=== PATIENT | male | born 1945 | race Caucasian/White ===

== ENCOUNTER 2022-07-01 14:53 | Emergency (ER) | payer MEDICARE, MEDICAID, SELFPAY ==
[2022-07-01] VITALS (7 sets, daily range): BP systolic 126–155; BP diastolic 57–77; PULSE 60–88; RESP 16–18; TEMP 36.6; O2SAT 94–98; BMI 25.8
[2022-07-01 15:08] LABS: POC Glucose,Bedside 105 (70-110)
--- NOTE | 2022-07-01 15:25 | PC.NURSE ---
KEYONNA CANO at
--- NOTE | 2022-07-01 15:27 | HMH.EDGENADL ---
Discharge Plan Disposition Patient Disposition: Home, Self-Care Prescriptions Prescriptions: New meclizine 25 mg tablet 25 mg PO TID PRN (Reason: dizziness) Qty: 30 0RF Referrals Follow up/Referrals: Lacy Ramires APRN [Primary Care Provider] - See instructions Clinical Impressions Clinical Impression: Vertigo Instructions Patient Instructions: DI for Vertigo Discharge ED Provider: Zackary Kay General Adult HPI General Chief complaint: Hyper/Hypoglycemia Stated complaint: diabetic,tired,dizzy Time Seen by Provider: 07/01/22 15:10 Mode of Arrival: Ambulatory Source of Information: Patient Limitations: No Limitations Description of Symptoms (Recalled from ER Triage Doc. by RN): Presents via POV d/t concerns with fluctuating blood sugar x 1 week. Hx of DM II. Recent seperation with significant other of 22 years. Since, poor intake. Pt reports FS in the middle of the night of 30. Pt called PCP who instructed to stop Metformin 500mg q daily on Saturday. Triage FS 105. History of Present Illness HPI narrative: Patient is a 76-year-old male with past medical history of diabetes who was recently taken off his metformin who presents with concern for fluctuating blood sugar and vertigo. He says that he recently had a separation from his significant other of 22 years and has not been eating well during this time. He says that he checked his blood sugar the other night and it was 30. He said that he was feeling little dizzy today so he wanted to come in for evaluation. Denies any nausea or diaphoresis. Denies any chest or abdominal pain. Denies any vomiting. Denies any diarrhea or constipation. Related Data Previous Rx's Medication Instructions Recorded meclizine 25 mg tablet 25 mg PO TID PRN dizziness #30 tabs 07/01/22 Allergies Allergy/AdvReac Type Severity Reaction Status Date / Time No Known Allergies Allergy Unverified 03/26/17 14:44 [facility] Disclaimer: The information contained in this section may have been updated after the patient was seen, as this information can be updated by other users. Social History Smoking Status: Former smoker alcohol intake: never current occupational status: retired Travel in the last 8 weeks: None ROS Obtained: Yes All systems reviewed & no additional complaints except as documented Physical Exam General General appearance: alert and in no apparent distress Head Head exam: atraumatic, normocephalic and normal inspection Eye Eye exam: Present normal appearance and PERRL ENT ENT exam: Present normal exam, mucous membranes moist and normal external ear exam Neck Neck exam: Present normal inspection and trachea midline Chest Chest inspection: Present normal inspection and symmetric chest wall rise Respiratory Respiratory exam: Present normal lung sounds bilaterally; Absent respiratory distress Cardiovascular Cardiovascular exam: Present regular rate and normal rhythm Abdominal Exam Abdominal exam: Present soft; Absent distention, tenderness or guarding Extremities Exam Extremities exam: Present normal inspection; Absent edema Neurological Exam Neurological exam: Present alert and oriented X3 Psychiatric Psychiatric exam: Present normal affect and normal mood Skin Skin exam: Present warm, dry, intact and normal color Medical Decision Making Medical Records Medical records reviewed: Yes I reviewed the patient's medical records. Octaviano Inquiry Pt receiving controlled substance: No Vital Signs: 07/01/22 15:06 07/01/22 15:02 07/01/22 15:38 Temperature 98 F Temperature Source Oral Pulse Rate 83 70 Pulse Rate [Right] 88 Respiratory Rate 16 18 18 Blood Pressure 155/77 H 126/62 Blood Pressure [Right Arm] 155/77 H Blood Pressure Mean [Right Arm] 103 Blood Pressure Source Blood Pressure Position 02 Sat by Pulse Oximetry 94 L 96 96 Oxygen Delivery Method Room Air Room Air Room Air 07/01/22 15:02 07/01/22 15:
--- NOTE | 2022-07-01 15:48 | PC.NURSE ---
Went in to round on patient; patient baez snot need anything at this time. Call light within reach
== END 2022-07-01 16:56 | disposition home or self-care (01) ==
PROVIDERS: Emergency Provider Student in an Organized Health Care Education/Training Program; PCP Nurse Practitioner Family
DX: R42 Dizziness and giddiness (principal); E11.9 Type 2 diabetes mellitus without complications
CPT/HCPCS: 82962; 96360; 99283; 99284

== ENCOUNTER 2022-08-27 13:41 | Emergency (ER) | payer MEDICARE, MEDICAID, SELFPAY ==
[2022-08-27 13:41] VITALS: BP 194/109; PULSE 99; RESP 17; TEMP 36.8; O2SAT 98; BMI 25.8
[2022-08-27 13:45] VITALS: BP 194/109; PULSE 85; O2SAT 98
--- NOTE | 2022-08-27 13:45 | PC.NURSE ---
DR MARTINEZ AT BEDSIDE
--- NOTE | 2022-08-27 13:46 | ECG_ITS ---
APPROVED REPORT Exam: Resting ECG HR:98 bpm ECG Measurements Heart Rate 98 AXES NM 150 P 46 QRSd 138 QRS -72 QT 362 T 29 QTc 418 Conclusion SINUS RHYTHM WITH OCCASIONAL VENTRICULAR PREMATURE COMPLEXES WITH FREQUENT SUPRAVENTRICULAR PREMATURE COMPLEXES RIGHT BUNDLE BRANCH BLOCK [120+ ms QRS DURATION, UPRIGHT V1, 40+ ms S IN I/aVL/V4/V5/V6] LEFT ANTERIOR FASCICULAR BLOCK [QRS AXIS <= -45, QR IN I, RS IN II] ABNORMAL ECG UNCONFIRMED REPORT Electronically signed by : Lucian Hood MD 08/28/2022 21:22:06
--- NOTE | 2022-08-27 13:49 | XR_ITS ---
FINAL REPORT TECHNIQUE: Single view chest CLINICAL HISTORY: soa FINDINGS: A single view of the chest was obtained. The heart and mediastinum are within normal limits. The lungs are clear. There is no pneumothorax. Osseous structures are unremarkable. IMPRESSION: No acute cardiopulmonary process. Reviewed, Interpreted and Dictated by Dhiraj Heard III, MD Transcribed by Tasia Solis Authenticated and [facility]
--- NOTE | 2022-08-27 13:53 | PC.NURSE ---
XR AT BEDSIDE
[2022-08-27 13:59] VITALS: BP 155/72; PULSE 87; O2SAT 97
[2022-08-27 14:02] LABS: Chloride 102 mmol/L (98-107); Sodium 134 mmol/L (136-145)
[2022-08-27 14:03] LABS: Potassium 4.3 mmoL/L (3.5-5.1)
[2022-08-27 14:05] LABS: Alanine Aminotransferase 31 U/L (12-78); Alkaline Phosphatase 49 U/L (38-126); Anion Gap 9.3 mEq/L (5-15); Aspartate Amino Transferase 34 U/L (17-59); Blood Urea Nitrogen 14 mg/dl (9-20); Carbon Dioxide 27 mmol/L (22.0-30.0); Creatinine Clearance Estimated 68 mL/min (50-200); Estimated Glomerular Filt Rate 109 ml/min (>60); GFR (African American) 132 ML/MIN (>60)
--- NOTE | 2022-08-27 14:05 | HMH.EDGENADL ---
Discharge Plan Disposition Patient Disposition: Home, Self-Care Chief Complaint: Arrhythmia/Palpitations Prescriptions Prescriptions: No Action meclizine 25 mg tablet 25 mg PO TID PRN (Reason: dizziness) Qty: 30 0RF Referrals Follow up/Referrals: Lacy Ramires APRN [Primary Care Provider] - See instructions Activity Restrictions/Add. Instructions Additional Instructions/Restrictions: Follow-up with your primary care physician within the next week. Restart your lisinopril 10 mg that you have at home daily until that time. Return for chest pain difficulty breathing or any other concerns Clinical Impressions Clinical Impression: Hypertensive urgency Discharge ED Provider: Bala Pinedo General Adult HPI General Chief complaint: Arrhythmia/Palpitations Stated complaint: High BP, possible irregular heartbeat Time Seen by Provider: 08/27/22 13:45 Mode of Arrival: Ambulatory Limitations: No Limitations Description of Symptoms (Recalled from ER Triage Doc. by RN): PT C/O HIGH BLOOD PRESSURE AND IRREGULAR HEART RATE THAT STARTED THIS AM. PT STATES HE HAS NOT TAKEN B/P MED OVER 1 YEAR, DID TAKE 10MG OF LISINOPRIL THIS AM History of Present Illness HPI narrative: 76-year-old male presents with high blood pressure and irregular heartbeat that started this morning. He says he has not taken blood pressure medicine in over 1 year he used to take lisinopril 10 mg he took 1 dose this morning. He describes mild lightheadedness. His neighbor is a former nurse and she checked his blood pressure and had elevated blood pressure so she recommended he come into the emergency room. No chest pain difficulty breathing headache change in mental status. Related Data Previous Rx's Medication Instructions Recorded meclizine 25 mg tablet 25 mg PO TID PRN dizziness #30 tabs 07/01/22 Allergies Allergy/AdvReac Type Severity Reaction Status Date / Time No Known Allergies Allergy Unverified 03/26/17 14:44 [facility] Disclaimer: The information contained in this section may have been updated after the patient was seen, as this information can be updated by other users. Social History (Updated 07/01/22 @ 16:52 by Zackary Kay MD) Smoking Status: Former smoker alcohol intake: never current occupational status: retired Travel in the last 8 weeks: None ROS Obtained: Yes All systems reviewed & no additional complaints except as documented Constitutional Constitutional: Denies fatigue and Denies headache(s) Eyes Eyes: Denies dry eyes ENT Ears, Nose, Mouth, and Throat: Denies dizziness and Denies headache(s) Cardiovascular Cardiovascular: Denies diaphoresis and Denies dyspnea Respiratory Respiratory: Denies dyspnea Gastrointestinal Gastrointestingal: Denies coffee ground emesis Genitourinary Male Genitourinary: Denies flank pain Musculoskeletal Musculoskeletal: Denies joint stiffness Integumentary/Breasts Skin/Breast: Denies rash Neurologic Neurologic: Denies dizziness and Denies headache(s) Endocrine Endocrine: Denies fatigue Hematologic/Lymphatic Henatologic/Lymphatic: Denies easy bleeding Allergic/Immunologic Allergic/Immunologic: Denies urticaria Physical Exam General General appearance: alert and in no apparent distress Eye Eye exam: Present PERRL and EOMI ENT ENT exam: Present normal exam and normal oropharynx Neck Neck exam: Present normal inspection Chest Chest inspection: Present symmetric chest wall rise Respiratory Respiratory exam: Present normal lung sounds bilaterally; Absent respiratory distress Cardiovascular Cardiovascular exam: Present regular rate and normal rhythm Abdominal Exam Abdominal exam: Present soft; Absent distention, tenderness, guarding, rebound, Jenkins's sign or tenderness at McBurney's Point Rectal Exam Rectal exam: Present deferred Back Exam Back exam: Present normal inspection Neurological Exam Neurological exam: Present alert and oriented X3 Psychiatric Psych
[2022-08-27 14:06] LABS: Albumin Level 4.8 g/dl (3.5-5.0); Albumin/Globulin Ratio 1.5 (1.1-1.8); Calcium 9.8 mg/dl (8.4-10.2); Globulin 3.1 g/dL (1.3-3.2); Glucose 108 mg/dl (74-100); Magnesium 2.1 mg/dl (1.6-2.3); Total Protein,Serum 7.9 g/dl (6.3-8.2)
[2022-08-27 14:11] LABS: Basophils # 0.1 K/mm3 (0-0.2); Basophils % 0.5 % (0.1-2.0); Eosinophils # 0.2 K/mm3 (0.0-0.4); Eosinophils % 1.8 % (0.1-12.0); Hematocrit 48.8 % (42.0-52.0); Lymphocytes # 1.7 K/mm3 (0.7-4.5); Lymphocytes % 16.6 % (10-50); Mean Corpuscular HGB Conc 32.8 g/dL (31.8-35.4); Mean Corpuscular Hemoglobin 31.4 pg (27.0-31.2); Mean Corpuscular Volume 95.5 fl (80-94); Mean Platelet Volume 7.4 fl (7.4-10.4); Monocytes # 0.5 K/mm3 (0.1-1.0); Monocytes % 4.6 % (1.7-9.3); Neutrophils # 7.9 K/mm3 (1.8-7.8); Neutrophils % 76.5 % (37.0-80.0); Platelet Count 290 K/mm3 (142-424); Red Blood Count 5.11 M/mm3 (4.60-6.20); Red Cell Distribution Width 13.8 % (11.5-17.5); White Blood Count 10.4 K/mm3 (4.8-10.8)
[2022-08-27 14:17] LABS: NT Pro Brain Natriuretic Pep. 384 pg/mL (0-450)
--- NOTE | 2022-08-27 14:21 | PC.NURSE ---
ROUNDED ON PT, NO NEEDS AT THIS TIME
--- NOTE | 2022-08-27 14:26 | PC.NURSE ---
nothing needed at this time, family at bedside
[2022-08-27 14:30] VITALS: BP 149/78; PULSE 97; RESP 21; O2SAT 98
[2022-08-27 14:30] LABS: Troponin I 0.01 ng/ml (0.00-0.034)
--- NOTE | 2022-08-27 14:36 | PC.NURSE ---
updated pt on poc
[2022-08-27 14:38] LABS: Thyroid Stimulating Hormone 1.69 uIU/mL (0.465-4.68)
--- NOTE | 2022-08-27 14:38 | PC.NURSE ---
Er at bedside
[2022-08-27 14:45] VITALS: BP 149/78; PULSE 88; RESP 18; TEMP 36.6; O2SAT 97
== END 2022-08-27 14:45 | disposition home or self-care (01) ==
PROVIDERS: Emergency Provider Emergency Medicine; PCP Nurse Practitioner Family
DX: I16.0 Hypertensive urgency (principal); I49.3 Ventricular premature depolarization; Z87.891 Personal history of nicotine dependence
CPT/HCPCS: 71045; 80053; 83735; 83880; 84443; 84484; 85025; 93005; 99285

== ENCOUNTER 2022-10-18 00:37 | Emergency (ER) | payer MEDICARE, MEDICAID, SELFPAY ==
[2022-10-18 00:48] VITALS: BP 161/82; PULSE 92; RESP 15; TEMP 36.7; O2SAT 97; BMI 26.6
--- NOTE | 2022-10-18 01:17 | HMH.EDSKAF ---
Discharge Plan Disposition Patient Disposition: Home, Self-Care Prescriptions Prescriptions: New permethrin [Elimite] 5 % cream 1 applic topical Q14D Qty: 60 0RF Rx Instructions: apply second treatment 14 days after first treatment if live lice remain No Action atorvastatin 20 mg tablet 20 mg PO DAILY Patient Comments: TAKE ONE TABLET BY MOUTH EVERY DAY alprazolam 0.25 mg tablet 0.25 mg PO Q6HP PRN (Reason: Anxiety) Patient Comments: TAKE ONE TABLET BY MOUTH THREE TIMES DAILY MAY CAUSE DROWSINESS meclizine 25 mg tablet 25 mg PO DAILYP PRN (Reason: Dizziness) Patient Comments: TAKE ONE TABLET BY MOUTH THREE TIMES DAILY NEEDED FOR dizziness levothyroxine 50 mcg tablet 50 mcg PO DAILY Patient Comments: TAKE ONE TABLET BY MOUTH EVERY DAY IN THE MORNING ON an EMPTY stomach fluoxetine 20 mg capsule 20 mg PO DAILY Patient Comments: TAKE ONE CAPSULE BY MOUTH EVERY DAY metformin 500 mg tablet extended release 24 hr 500 mg PO BID Patient Comments: TAKE ONE TABLET BY MOUTH EVERY DAY with THE evening meal Referrals Follow up/Referrals: Lacy Ramires APRN [Primary Care Provider] - See instructions Clinical Impressions Clinical Impression: Insect bites Instructions Patient Instructions: DI for Skin Abscess Discharge ED Provider: Jad Bee Skin/Abscess/FB HPI General Chief complaint: Skin/Abscess/Foreign Body Stated complaint: rash Time Seen by Provider: 10/18/22 01:10 Mode of Arrival: Family Vehicle Source of Information: Patient Limitations: No Limitations Description of Symptoms (Recalled from ER Triage Doc. by RN): 76 YO MALE PRESENTS WITH MULTIPLE DAYS OF WORSENING RASH/HIVES/CHIGGER BITES . STATES HE REMOVED A COUPLE OF TINY DEER TICKS FROM HIS LLQ ABD AND LUE DISTAL FROM ELBOW. PATIENT IS AFEBRILE. DENIES N/V/D. DENIES ERYTHEMA,EDEMA OR JOINT PAIN. History of Present Illness HPI narrative: 76-year-old white male presents with skin rash few days duration. He has been out with his dogs and feels certain that he is gotten some chigger bites in his found a couple of small deer ticks. Patient is having no systemic symptoms but is having whelps on his arms and buttocks area and under his panniculus of his abdomen. He has no known medical allergies Related Data Home Medications Medication Instructions Recorded Confirmed alprazolam 0.25 mg tablet 0.25 mg PO Q6HP PRN Anxiety 10/18/22 10/18/22 atorvastatin 20 mg tablet 20 mg PO DAILY Cholesterol 10/18/22 10/18/22 fluoxetine 20 mg capsule 20 mg PO DAILY MOOD AND BEHAVIOR 10/18/22 10/18/22 levothyroxine 50 mcg tablet 50 mcg PO DAILY HYPOTHYROID 10/18/22 10/18/22 meclizine 25 mg tablet 25 mg PO DAILYP PRN Dizziness 10/18/22 10/18/22 metformin 500 mg tablet,extended 500 mg PO BID GLUCOSE 10/18/22 10/18/22 release 24 hr Previous Rx's Medication Instructions Recorded permethrin 5 % topical cream 1 applic topical Q14D 2 doses #60 10/18/22 (Elimite) grams Allergies Allergy/AdvReac Type Severity Reaction Status Date / Time No Known Allergies Allergy Unverified 03/26/17 14:44 [facility] Disclaimer: The information contained in this section may have been updated after the patient was seen, as this information can be updated by other users. Social History Smoking Status: Smoker, status unknown alcohol intake: never current occupational status: retired Travel in the last 8 weeks: None ROS Obtained: Yes Systems reviewed as appropriate & no additional complaints except as documented Physical Exam General General appearance: alert and in no apparent distress Head Head exam: atraumatic and normocephalic Eye Eye exam: Present normal appearance Neck Neck exam: Present normal inspection Respiratory Respiratory exam: Present normal lung sounds bilaterally; Absent respiratory distress or wheez
[2022-10-18 01:32] VITALS: BP 142/70; PULSE 79; RESP 16; TEMP 36.8; O2SAT 98
== END 2022-10-18 01:36 | disposition home or self-care (01) ==
PROVIDERS: Emergency Provider Emergency Medicine; PCP Nurse Practitioner Family
DX: R21 Rash and other nonspecific skin eruption (principal); L50.9 Urticaria, unspecified; W57.XXXA Bitten or stung by nonvenomous insect and other nonvenomous arthropods, initial encounter
CPT/HCPCS: 96372; 99283; 99284; J1030

== ENCOUNTER → 2023-03-18 23:03 | Outpatient (CLI) | payer MEDICARE, MEDICAID, SELFPAY ==
[2023-03-18 18:45] LABS: Alanine Aminotransferase 19 U/L (12-78); Albumin Level 4.9 g/dl (3.5-5.0); Albumin/Globulin Ratio 1.8 (1.1-1.8); Alkaline Phosphatase 49 U/L (38-126); Anion Gap 11.7 mEq/L (5-15); Aspartate Amino Transferase 24 U/L (17-59); Bilirubin,Total 0.8 mg/dl (0.2-1.3); Blood Urea Nitrogen 14 mg/dl (9-20); Carbon Dioxide 26 mmol/L (22.0-30.0); Chloride 102 mmol/L (98-107); Estimated Glomerular Filt Rate 109 ml/min (>60); GFR (African American) 132 ML/MIN (>60); Globulin 2.7 g/dL (1.3-3.2); Glucose 83 mg/dl (74-100); Potassium 4.7 mmoL/L (3.5-5.1); Sodium 135 mmol/L (136-145); Total Protein,Serum 7.6 g/dl (6.3-8.2)
[2023-03-18 19:20] LABS: Thyroid Stimulating Hormone 2.52 uIU/mL (0.465-4.68)
[2023-03-18 19:40] LABS: Hemoglobin A1C 5.5 % (4.0-6.0)
[2023-03-18 20:09] LABS: Chol/HDL Ratio 4.4 (1-3.5); Cholesterol 215 mg/dl (140-200); HDL Cholesterol 49 mg/dl (40-60); Triglycerides 63 mg/dl (30-150); VLDL Cholesterol 13 mg/dL (0-40)
[2023-03-18 20:21] LABS: Direct LDL Cholesterol 140.57 mg/dL (100-129)
== END ==
PROVIDERS: PCP Nurse Practitioner Family; Visit Provider Nurse Practitioner Family
DX: E11.9 Type 2 diabetes mellitus without complications (principal); E03.9 Hypothyroidism, unspecified
CPT/HCPCS: 80053; 80061; 83036; 84443

== ENCOUNTER 2023-04-20 18:40 | Emergency (ER) | payer MEDICARE, MEDICAID, SELFPAY ==
[2023-04-20 18:42] VITALS: BP 169/84; PULSE 92; RESP 18; TEMP 36.7; O2SAT 98; BMI 26.6
--- NOTE | 2023-04-20 18:44 | HMH.EDGENADL ---
Discharge Plan Disposition Patient Disposition: Home, Self-Care Condition: Good Prescriptions Prescriptions: New ketorolac 10 mg tablet 10 mg PO Q8H PRN (Reason: pain) 4 Days Qty: 10 0RF No Action lisinopril 10 mg tablet 10 mg PO DAILY 90 Days Qty: 90 3RF alprazolam 0.25 mg tablet 0.25 mg PO TID PRN (Reason: Anxiety) 30 Days Qty: 90 2RF levothyroxine 50 mcg tablet 50 mcg PO DAILY 90 Days Qty: 90 3RF omega-3 fatty acids 1,250 mg capsule 2,500 mg PO DAILY Qty: 30 0RF Referrals Follow up/Referrals: Gilbert Lock DO [Staff Physician] - See instructions Lacy Ramires APRN [Primary Care Provider] - See instructions Activity Restrictions/Add. Instructions Additional Instructions/Restrictions: Please follow-up with the orthopedic doctor for a likely MRI of your shoulder. Please return with any new or worsening symptoms Clinical Impressions Clinical Impression: Injury of right shoulder Qualifiers: Encounter type: initial encounter Qualified Code(s): S49.91XA - Unspecified injury of right shoulder and upper arm, initial encounter Discharge ED Provider: Darien Lezama General Adult HPI General Chief complaint: PAIN Stated complaint: AO fall RT shoulder inj, high heart rate Time Seen by Provider: 04/20/23 18:44 History of Present Illness HPI narrative: Patient describes pain in his bilateral shoulders, however right worse than left, after 2 traumatic injuries. Both traumatic injuries involved falls over nonsyncopal in nature. At 1 time he slipped on ice. The second time he injured his shoulder against a piece of farm equipment. He has had pain with range of motion of his right shoulder since. He noted himself to have hypertension prior to arrival in the setting of known hypertensive disorder. He denies any chest pain or palpitations at this time. No head injury. No loss of consciousness. He is right-hand dominant. Previous therapies included [id number] analgesia Related Data Previous Rx's Medication Instructions Recorded lisinopril 10 mg tablet 10 mg PO DAILY 90 days #90 tabs 12/18/22 levothyroxine 50 mcg tablet 50 mcg PO DAILY HYPOTHYROID 90 03/05/23 days #90 tabs alprazolam 0.25 mg tablet 0.25 mg PO TID PRN Anxiety 30 days 03/18/23 #90 tabs omega-3 fatty acids 1,250 mg 2,500 mg PO DAILY #30 caps 03/21/23 capsule ketorolac 10 mg tablet 10 mg PO Q8H PRN pain 4 days #10 04/20/23 tabs Allergies Allergy/AdvReac Type Severity Reaction Status Date / Time No Known Allergies Allergy Verified 03/18/23 13:[address] [facility] Disclaimer: The information contained in this section may have been updated after the patient was seen, as this information can be updated by other users. Medical History Hypertension Hypothyroidism Post traumatic stress disorder (PTSD) Social History Smoking Status: Current every day smoker alcohol intake: never current occupational status: retired Travel in the last 8 weeks: None ROS Obtained: Yes Systems reviewed as appropriate & no additional complaints except as documented As per HPI Physical Exam General General appearance: alert and in no apparent distress Head Head exam: atraumatic and normocephalic Eye Eye exam: Present normal appearance Neck Neck exam: Present normal inspection Chest Chest inspection: Present normal inspection and symmetric chest wall rise Respiratory Respiratory exam: Present normal lung sounds bilaterally; Absent respiratory distress Cardiovascular Cardiovascular exam: Present regular rate and normal rhythm Abdominal Exam Abdominal exam: Present soft Extremities Exam Extremities exam: Present other (Right shoulder tenderness to palpation, range of motion limited secondary to pain, distally neurovascularly intact) Neurological Exam Neurological exam: Present alert and oriented X3 Psychiatric Psychiatric exam: Present normal affect and normal mood Skin Skin exam: Present warm and dry Medical Decision Making Medical Records Medical records reviewed: Yes I reviewed the patient's medical records. Octaviano Inquiry Pt receiving controlled substance: No Vital Signs: 04/20/23 18:42 04/20/23 20:13 Temperature 98.1 F 98.2 F Temperature Source Oral Pulse Rate 91 H Pulse Rate [Radial] 92 H Respiratory Rate 18 20 Blood Pressure 159/83 H Blood Pressure [Right Arm] 169/84 H Blood Pressure Mean [Right Arm] 112 Blood Pressure Source [Right Arm] Automatic Cuff Blood Pressure Position [Right Arm] Sitting 02 Sat by Pulse Oximetry 98 Oxygen Delivery Method Room Air Room Air Orders (Tests/Meds): ED MEDICATIONS Discontinued Medications Generic Name Dose Route Start Last Admin Trade Name Freq PRN Reason Stop Dose Admin Ketorolac Tromethamine 15 mg 04/20/23 19:50 Ketorolac 30mg/Ml Vial IV 04/20/23 19:51 ONCE ONE Ketorolac Tromethamine 15 mg 04/20/23 20:01 04/20/23 20:02 Ketorolac 30mg/Ml Vial IM 04/20/23 20:02 15 mg ONCE ONE Administration Oxycodone HCl 5 mg 04/20/23 19:50 04/20/23 20:02 Oxycodone 5mg Immediate Release Tablet PO 04/20/23 19:51 5 mg ONCE ONE Administration ORDERS Category Date Time Status XR shoulder LT min 2V Stat Exams 04/20/23 18:55 Completed XR shoulder RT min 2V Stat Exams 04/20/23 18:55 Completed Medical Decision Narrative: Patient with history and exam per above presenting for evaluation of bilateral shoulder pain after injury Diagnoses considered include Fracture, soft tissue injury, vascular injury, nerve injury, ED workup and treatment included: ED MEDICATIONS Discontinued Medications Generic Name Dose Route Start Last Admin Trade Name Cindy PRN Reason Stop Dose Admin Ketorolac Tromethamine 15 mg 04/20/23 19:50 Ketorolac 30mg/Ml Vial IV 04/20/23 19:51 ONCE ONE Ketorolac Tromethamine 15 mg 04/20/23 20:01 04/20/23 20:02 Ketorolac 30mg/Ml Vial IM 04/20/23 20:02 15 mg ONCE ONE Administration Oxycodone HCl 5 mg 04/20/23 19:50 04/20/23 20:02 Oxycodone 5mg Immediate Release Tablet PO 04/20/23 19:51 5 mg ONCE ONE Administration ORDERS Category Date Time Status XR shoulder LT min 2V Stat Exams 04/20/23 18:55 Completed XR shoulder RT min 2V Stat Exams 04/20/23 18:55 Completed Imaging was independently visualized and interpreted by me, significant for no acute osseous abnormality Symptoms at this time are thought to be most consistent with rotator cuff injury I discussed my clinical impression with patient and answered all questions. At this time, given reassuring workup and exam, I discussed that I have a low index of suspicion for any acute pathology necessitating inpatient management. Specific return precautions were given, with understanding and agreement. Patient will follow up with primary care provider as needed. Please see discharge section of note for any medication adjustments or new prescriptions. Critical Care Critical Care Time Critical Care Time: No
--- NOTE | 2023-04-20 18:55 | XR_ITS ---
PROCEDURE INFORMATION: Exam: XR Right Shoulder Exam date and time: 04/20/2023 6:53 PM Age: 77 years old Clinical indication: Injury or trauma; Fall; Blunt trauma (contusions or hematomas); Patient HX: tractor flipped over about a week ago, hurting left shoulder. States he fell today and hurt right shoulder. TECHNIQUE: Imaging protocol: Radiologic exam of the right shoulder. Views: 2 or more views. Total images: 3 COMPARISON: CR XR CHEST PORTABLE 08/27/2022 1:48 PM FINDINGS: Bones/joints: No acute fracture, joint dislocation, or AC joint separation. Mild degenerative change glenohumeral joint and AC joint space. Undersurface acromion spurring. Subacromial space is maintained. Tiny enthesophyte greater tuberosity. No concerning bone lesions. Soft tissues: Unremarkable soft tissues. IMPRESSION: 1. No acute osseous abnormality. 2. Chronic findings.
--- NOTE | 2023-04-20 18:55 | XR_ITS ---
PROCEDURE INFORMATION: Exam: XR Left Shoulder Exam date and time: 04/20/2023 6:51 PM Age: 77 years old Clinical indication: Injury or trauma; Fall; Blunt trauma (contusions or hematomas); Patient HX: States tractor flipped over about a week ago, hurting left shoulder. States he fell today and hurt right shoulder. TECHNIQUE: Imaging protocol: Radiologic exam of the left shoulder. Views: 2 or more views. Total images: 3 COMPARISON: CR XR CHEST PORTABLE 08/27/2022 1:48 PM FINDINGS: Bones/joints: No acute fracture or joint dislocation. No AC joint separation. Mild degenerative change AC joint and glenohumeral joint. Subacromial distance is maintained. Spurring undersurface of the acromion process. Tiny enthesophyte at the greater tuberosity. No concerning bone lesions. Soft tissues: Unremarkable soft tissues. IMPRESSION: 1. No acute osseous abnormality. 2. Chronic findings.
[2023-04-20] MEDS: OXYCODONE 5MG IMMEDIATE RELEASE TABLET 5 MG PO (20:02)
[2023-04-20] MEDS: KETOROLAC 30MG/ML VIAL 15 MG IM (20:02)
[2023-04-20 20:13] VITALS: BP 159/83; PULSE 91; RESP 20; TEMP 36.8; O2SAT 98
== END 2023-04-20 20:14 | disposition home or self-care (01) ==
PROVIDERS: Emergency Provider Emergency Medicine; PCP Nurse Practitioner Family
DX: S49.91XA Unspecified injury of right shoulder and upper arm, initial encounter (principal); M25.511 Pain in right shoulder; M25.512 Pain in left shoulder; F17.210 Nicotine dependence, cigarettes, uncomplicated; I10 Essential (primary) hypertension; E03.9 Hypothyroidism, unspecified; W00.0XXA Fall on same level due to ice and snow, initial encounter
CPT/HCPCS: 73030; 96372; 96374; 99284

== ENCOUNTER 2023-06-26 17:08 | Outpatient (CLI) | payer MEDICARE, MEDICAID, SELFPAY ==
[2023-06-26 17:23] LABS: Basophils # 0.1 K/mm3 (0-0.2); Basophils % 0.9 % (0.1-2.0); Eosinophils # 0.3 K/mm3 (0.0-0.4); Eosinophils % 2.8 % (0.1-12.0); Hematocrit 46.6 % (42.0-52.0); Hemoglobin 15.6 g/dL (14.1-18.0); Lymphocytes % 19.5 % (10-50); Mean Corpuscular HGB Conc 33.4 g/dL (31.8-35.4); Mean Corpuscular Hemoglobin 32.8 pg (27.0-31.2); Mean Corpuscular Volume 98.2 fl (80-94); Mean Platelet Volume 8.7 fl (7.4-10.4); Monocytes # 0.5 K/mm3 (0.1-1.0); Monocytes % 4.5 % (1.7-9.3); Neutrophils # 7.5 K/mm3 (1.8-7.8); Neutrophils % 72.3 % (37.0-80.0); Platelet Count 272 K/mm3 (142-424); Red Blood Count 4.75 M/mm3 (4.60-6.20); Red Cell Distribution Width 14.1 % (11.5-17.5); White Blood Count 10.4 K/mm3 (4.8-10.8)
[2023-06-26 17:43] LABS: Chloride 103 mmol/L (98-107); Hemoglobin A1C 5.8 % (4.0-6.0); Sodium 136 mmol/L (136-145)
[2023-06-26 17:44] LABS: Potassium 4.5 mmoL/L (3.5-5.1)
[2023-06-26 17:46] LABS: Alanine Aminotransferase 22 U/L (12-78); Albumin Level 4.9 g/dl (3.5-5.0); Alkaline Phosphatase 57 U/L (38-126); Anion Gap 13.5 mEq/L (5-15); Aspartate Amino Transferase 27 U/L (17-59); Bilirubin,Total 0.8 mg/dl (0.2-1.3); Blood Urea Nitrogen 13 mg/dl (9-20); Carbon Dioxide 24 mmol/L (22.0-30.0); Cholesterol 243 mg/dl (140-200); Estimated Glomerular Filt Rate 109 ml/min (>60); GFR (African American) 132 ML/MIN (>60); Globulin 2.4 g/dL (1.3-3.2); Total Protein,Serum 7.3 g/dl (6.3-8.2); Triglycerides 113 mg/dl (30-150); VLDL Cholesterol 23 mg/dL (0-40)
[2023-06-26 17:47] LABS: Calcium 9.9 mg/dl (8.4-10.2); Chol/HDL Ratio 5.2 (1-3.5); Glucose 84 mg/dl (74-100); HDL Cholesterol 47 mg/dl (40-60)
[2023-06-26 17:57] LABS: Direct LDL Cholesterol 122.13 mg/dL (100-129)
[2023-06-26 18:17] LABS: Thyroid Stimulating Hormone 1.91 uIU/mL (0.465-4.68)
[2023-06-26 18:21] LABS: Ferritin 91.5 ng/ml (17.9-464)
[2023-06-26 18:44] LABS: Prostate Specific Ag Screen 2.6 ng/ml (0.0-4.0)
[2023-06-26 19:03] LABS: Vitamin B12 896 pg/mL (239-931)
== END 2023-06-26 23:59 ==
LOC: LAB.DROPOF 17:08
PROVIDERS: PCP Nurse Practitioner Family; Visit Provider Nurse Practitioner Family
DX: I10 Essential (primary) hypertension (principal); E11.9 Type 2 diabetes mellitus without complications; D64.9 Anemia, unspecified; Z12.5 Encounter for screening for malignant neoplasm of prostate; E03.9 Hypothyroidism, unspecified
CPT/HCPCS: 80053; 80061; 82607; 82728; 83036; 84443; 85025; G0103

== ENCOUNTER 2024-02-21 11:51 | Emergency (ER) | payer MEDICARE, MEDICAID, SELFPAY ==
[2024-02-21 11:53] VITALS: BP 179/98; PULSE 96; RESP 16; TEMP 36.6; O2SAT 98; BMI 26.6
--- NOTE | 2024-02-21 11:55 | ED_ITS ---
Discharge Plan Disposition Patient Disposition: Home, Self-Care Condition: Good Prescriptions Prescriptions: No Action lisinopril 5 mg tablet 5 mg PO DAILY 90 Days Qty: 90 3RF alprazolam 0.25 mg tablet 0.25 mg PO TID PRN (Reason: Anxiety) 30 Days Qty: 90 2RF levothyroxine 50 mcg tablet 50 mcg PO DAILY 90 Days Qty: 90 3RF albuterol sulfate [Ventolin HFA] 90 mcg/actuation HFA aerosol inhaler 2 puff inhalation Q4-6H PRN (Reason: shortness of breath or wheezing) Qty: 6.7 2RF omega-3 fatty acids 1,250 mg capsule 2,500 mg PO DAILY Qty: 30 0RF Referrals Follow up/Referrals: Jessi Reid APRN [Referring] - See instructions Donnell Cheney MD [Staff Physician] - See instructions Activity Restrictions/Add. Instructions Additional Instructions/Restrictions: As we discussed, please follow-up with a dealer relationship manager. I recommend that, for the vertigo that you mention, you take the meclizine instead of your Xanax if you feel that you are dizzy. Please return with any new or worsening symptoms. Clinical Impressions Clinical Impression: Abnormal ECG Print Language Print Language: Estonian Discharge ED Provider: Darien Lezama Adult HPI General Chief complaint: Weakness Stated complaint: light headed, tires easily Time Seen by Provider: 02/21/24 11:55 History of Present Illness HPI narrative: The patient presents with concerns about a recent EKG. He reports feeling lightheaded but denies experiencing room spinning or dizziness. The patient also denies any chest pain or abdominal pain associated with his symptoms. The patient has a history of an EKG that raised concerns with their primary care provider, who suggested he may have had a heart attack in the past. He mentions working in [place] approximately 20 years ago and being alone since his experienced a dizzy spell. The patient reports that the lightheadedness has been coming and going, rather than being constant. He denies feeling like he is going to pass out. The patient has not had any recent changes in medications. Additionally, the patient expresses concern about the possibility of a past heart attack, referencing his primary care provider's suggestion about this. Please note that above description of symptoms, in this electronic medical record under categorization of recalled from ER triage doctor by RN are reflective of an initial nursing assessment, however, is not reflective of my full history and physical exam that was personally taken and clarified. Consequentially, this preceding description of symptoms, which may include the patient's categorized chief complaint in the EMR, do not reflect my personal clinical impression, and the ultimate description of history of present illness and patient stated complaints should be deferred to this section of the note. Unless stated otherwise or congruent with this section of the note, additional signs, symptoms, or incongruence should be interpreted as inaccurate with my clinical impression. Related Data Previous Rx's ?Medication ?Instructions ?Recorded omega-3 fatty acids 1,250 mg 2,500 mg (2 x 1,250 mg) PO DAILY 03/21/23 capsule #30 caps lisinopril 5 mg tablet 5 mg PO DAILY 90 days #90 tabs 06/26/23 albuterol sulfate 90 mcg/actuation 2 puff inhalation Q4-6H PRN 10/01/23 aerosol inhaler (Ventolin HFA) shortness of breath or wheezing #6.7 grams levothyroxine 50 mcg tablet 50 mcg PO DAILY HYPOTHYROID 90 10/01/23 days #90 tabs alprazolam 0.25 mg tablet 0.25 mg PO TID PRN Anxiety 30 days 12/30/23 #90 tabs Allergies Allergy/AdvReac Type Severity Reaction Status Date / Time No Known Allergies Allergy Verified 12/30/23 14:01 [facility] Disclaimer: The information contained in this section may have been updated after the patient was seen, as this information can be updated by other users. Medical History Post traumatic stress disorder (PTSD) Hypertension Hypothyroidism Social History Smoking Status: Never smoker alcohol intake: never current occupational status: retired Travel in the last 8 weeks: None Other Medical History Have you received the Pneumonia Vaccine: No ROS Obtained: Yes other As per HPI Physical Exam General General appearance: alert and in no apparent distress Head Head exam: atraumatic and normocephalic Eye Eye exam: Present normal appearance Neck Neck exam: Present normal inspection Chest Chest inspection: Present normal inspection and symmetric chest wall rise Respiratory Respiratory exam: Present normal lung sounds bilaterally; Absent respiratory distress Cardiovascular Cardiovascular exam: Present regular rate and normal rhythm Abdominal Exam Abdominal exam: Present soft Neurological Exam Neurological exam: Present alert and oriented X3 Psychiatric Psychiatric exam: Present normal affect and normal mood Skin Skin exam: Present warm and dry Medical Decision Making Medical Records Medical records reviewed: Yes I reviewed the patient's medical records. Screening: Per USPSTF and CDC recommendations, given the prevalence of disease in our region, it is our hospital?s policy to screen for HIV and viral Hepatitis for all patients aged 18 and over and those with ongoing risk factors. Octaviano Inquiry Pt receiving controlled substance: No Vital Signs: 02/21/24 11:53 02/21/24 15:36 Temperature 97.9 F 98.2 F Temperature Source Oral Pulse Rate 69 Pulse Rate [Radial] 96 H Respiratory Rate 16 20 Blood Pressure 167/73 H Blood Pressure [Right Arm] 179/98 H Blood Pressure Mean [Right Arm] 125 Blood Pressure Source [Right Arm] Automatic Cuff Blood Pressure Position [Right Arm] Sitting 02 Sat by Pulse Oximetry 98 Oxygen Delivery Method Room Air Room Air Lab Data Lab Results 02/21/24 12:04: WBC 7.3, RBC 4.84, Hgb 15.5, Hct 45.4, MCV 93.7, MCH 32.1 H, MCHC 34.2, RDW 14.0, Plt Count 241, MPV 7.5, Neut % (Auto) 67.5, Lymph % (Auto) 22.1, Marin[place] % (Auto) 5.2, Eos % (Auto) 4.3, Baso % (Auto) 0.8, Neut # (Auto) 4.9, Lymph # (Auto) 1.6, Marin[place] # (Auto) 0.4, Eos # (Auto) 0.3, Baso # (Auto) 0.1, Sodium 138, Potassium 4.1, Chloride 106, Carbon Dioxide 23, Anion Gap 13.1, BUN 16, Creatinine 0.70, Estimated Creat Clear 68, Estimated GFR 109, Est GFR ( Amer) 131, Glucose 124 H, Calcium 9.6, Magnesium 2.1, Total Bilirubin 0.8, AST 23, ALT 18, Alkaline Phosphatase 51, Troponin I < 0.01, NT-Pro-B Natriuret Pep 317, Total Protein 7.2, Albumin 4.6, Globulin 2.6, Albumin/Globulin Ratio 1.8, Free T4 1.09, Hepatitis C Antibody Non reactive, HIV 1&2 Antibody Rapid Nonreactive 02/21/24 12:30: SARS-CoV-2 (PCR) Not detected, Influenza A Untype (PCR) Not detected, Influenza Type B (PCR) Not detected 02/21/24 14:40: Troponin I 0.01 02/21/24 12:04 02/21/24 12:04 Orders (Tests/Meds): ED MEDICATIONS Discontinued Medications Generic Name Dose Route Start Last Admin Trade Name Freq PRN Reason Stop Dose Admin Sodium Chloride 10 ml 02/21/24 12:10 Sodium Chloride 0.9% 10ml Flush Syringe IV 03/22/24 12:09 NEEDED PRN Maintain IV Site ORDERS Category Date Time Status BNP [NT Pro Brain Natriuretic Pep.] Stat Lab 02/21/24 12:04 Completed CBC w/Auto Diff [Complete Blood Count Auto Diff] Stat Lab 02/21/24 12:04 Completed CMP [Comprehensive Metabolic Panel] Stat Lab 02/21/24 12:04 Completed Free T4 (Free Thyroxine) Stat Lab 02/21/24 12:04 Completed HIV (1&2) Antibody Rapid Stat Lab 02/21/24 12:04 Completed Hep C Ab with Reflex to RNA Stat Lab 02/21/24 12:04 Completed MAG [Magnesium] Stat Lab 02/21/24 12:04 Completed Rapid PCR Covid and Flu A/B Stat Lab 02/21/24 12:30 Completed Troponin I Q3H Lab 02/21/24 12:04 Completed Troponin I Q3H Lab 02/21/24 14:40 Completed Medical Decision Narrative: Patient with history and exam per above presenting for evaluation of concerns with abnormal EKG Diagnoses considered include chronic structural abnormality, ACS, electrolyte abnormality, hypovolemia, among others ED workup and treatment included: ED MEDICATIONS Discontinued Medications Generic Name Dose Route Start Last Admin Trade Name Freq PRN Reason Stop Dose Admin Sodium Chloride 10 ml 02/21/24 12:10 Sodium Chloride 0.9% 10ml Flush Syringe IV 03/22/24 12:09 NEEDED PRN Maintain IV Site ORDERS Category Date Time Status BNP [NT Pro Brain Natriuretic Pep.] Stat Lab 02/21/24 12:04 Completed CBC w/Auto Diff [Complete Blood Count Auto Diff] Stat Lab 02/21/24 12:04 Completed CMP [Comprehensive Metabolic Panel] Stat Lab 02/21/24 12:04 Completed Free T4 (Free Thyroxine) Stat Lab 02/21/24 12:04 Completed HIV (1&2) Antibody Rapid Stat Lab 02/21/24 12:04 Completed Hep C Ab with Reflex to RNA Stat Lab 02/21/24 12:04 Completed MAG [Magnesium] Stat Lab 02/21/24 12:04 Completed Rapid PCR Covid and Flu A/B Stat Lab 02/21/24 12:30 Completed Troponin I Q3H Lab 02/21/24 12:04 Completed Troponin I Q3H Lab 02/21/24 14:40 Completed Labs were independently interpreted by me, significant for no acute findings Imaging was independently visualized and interpreted by me, significant for no acute findings Please refer to radiology report for full details. I discussed my clinical impression with patient and answered all questions. At this time, the evidence for any other entities in the differential is insufficient to warrant any further testing or ED observation. This was explained to the patient. The patient was advised that persistent or worsening symptoms require further evaluation. Critical Care Critical Care Time Critical Care Time: No
--- NOTE | 2024-02-21 11:58 | ECG_ITS ---
APPROVED REPORT Exam: Resting ECG HR:94 bpm ECG Measurements Heart Rate 94 AXES VA 181 P 51 QRSd 143 QRS -66 QT 368 T 19 QTc 420 Conclusion SINUS RHYTHM WITH OCCASIONAL VENTRICULAR PREMATURE COMPLEXES WITH OCCASIONAL SUPRAVENTRICULAR PREMATURE COMPLEXES RIGHT BUNDLE BRANCH BLOCK [120+ ms QRS DURATION, UPRIGHT V1, 40+ ms S IN I/aVL/V4/V5/V6] LEFT ANTERIOR FASCICULAR BLOCK [QRS AXIS <= -45, QR IN I, RS IN II] ABNORMAL ECG UNCONFIRMED REPORT Electronically signed by : ABELARDO ROWAN, 02/24/2024 06:58:42
[2024-02-21 12:15] LABS: Basophils # 0.1 K/mm3 (0-0.2); Basophils % 0.8 % (0.1-2.0); Eosinophils # 0.3 K/mm3 (0.0-0.4); Eosinophils % 4.3 % (0.1-12.0); Hematocrit 45.4 % (42.0-52.0); Hemoglobin 15.5 g/dL (14.1-18.0); Lymphocytes # 1.6 K/mm3 (0.7-4.5); Lymphocytes % 22.1 % (10-50); Mean Corpuscular HGB Conc 34.2 g/dL (31.8-35.4); Mean Corpuscular Hemoglobin 32.1 pg (27.0-31.2); Mean Corpuscular Volume 93.7 fl (80-94); Mean Platelet Volume 7.5 fl (7.4-10.4); Monocytes # 0.4 K/mm3 (0.1-1.0); Monocytes % 5.2 % (1.7-9.3); Neutrophils # 4.9 K/mm3 (1.8-7.8); Neutrophils % 67.5 % (37.0-80.0); Platelet Count 241 K/mm3 (142-424); Red Blood Count 4.84 M/mm3 (4.60-6.20); White Blood Count 7.3 K/mm3 (4.8-10.8)
[2024-02-21 12:26] LABS: Albumin Level 4.6 g/dl (3.5-5.0); Chloride 106 mmol/L (98-107); Sodium 138 mmol/L (136-145)
[2024-02-21 12:27] LABS: Potassium 4.1 mmoL/L (3.5-5.1)
[2024-02-21 12:29] LABS: Alanine Aminotransferase 18 U/L (12-78); Anion Gap 13.1 mEq/L (5-15); Aspartate Amino Transferase 23 U/L (17-59); Blood Urea Nitrogen 16 mg/dl (9-20); Carbon Dioxide 23 mmol/L (22.0-30.0); Creatinine Clearance Estimated 68 mL/min (50-200); Estimated Glomerular Filt Rate 109 ml/min (>60); GFR (African American) 131 ML/MIN (>60)
[2024-02-21 12:30] LABS: Albumin/Globulin Ratio 1.8 (1.1-1.8); Alkaline Phosphatase 51 U/L (38-126); Bilirubin,Total 0.8 mg/dl (0.2-1.3); Calcium 9.6 mg/dl (8.4-10.2); Globulin 2.6 g/dL (1.3-3.2); Glucose 124 mg/dl (74-100); Total Protein,Serum 7.2 g/dl (6.3-8.2)
[2024-02-21 12:36] LABS: Coronavirus 19, PCR Not Detected (NotDetected); Influenza A, PCR Not Detected (NotDetected); Influenza B, PCR Not Detected (NotDetected)
[2024-02-21 12:41] LABS: Magnesium 2.1 mg/dl (1.6-2.3)
[2024-02-21 12:51] LABS: NT Pro Brain Natriuretic Pep. 317 pg/mL (0-450)
[2024-02-21 12:55] LABS: Free T4 (Free Thyroxine) 1.09 ng/dl (0.78-2.19)
[2024-02-21 12:56] LABS: Troponin I < 0.01 ng/ml (0.00-0.034)
[2024-02-21 15:08] LABS: Troponin I 0.01 ng/ml (0.00-0.034)
[2024-02-21 15:36] VITALS: BP 167/73; PULSE 69; RESP 20; TEMP 36.8; O2SAT 96
[2024-02-21 16:22] LABS: HIV (1&2) Antibody Rapid NONREACTIVE (NONREACTIVE)
[2024-02-22 09:14] LABS: HCV Ab Non Reactive (Non Reactive)
== END 2024-02-21 15:37 | disposition home or self-care (01) ==
PROVIDERS: Emergency Provider Emergency Medicine; PCP Nurse Practitioner Family
DX: R42 Dizziness and giddiness (principal)
CPT/HCPCS: 80053; 83735; 83880; 84439; 84484; 85025; 86803; 87389; 87636; 93005; 99284

== ENCOUNTER 2024-02-27 11:58 | Outpatient (CLI) | payer MEDICARE, MEDICAID, SELFPAY | END 2024-02-27 23:59 | disposition home or self-care (01) | LOC: RT 11:59 | PROVIDERS: PCP Nurse Practitioner Family; Visit Provider Physician Assistant | DX: R42 Dizziness and giddiness (principal); I25.10 Atherosclerotic heart disease of native coronary artery without angina pectoris; R06.09 Other forms of dyspnea; R53.83 Other fatigue; R94.31 Abnormal electrocardiogram [ECG] [EKG] | CPT/HCPCS: 93270 ==

== ENCOUNTER 2024-03-09 06:12 | Outpatient (CLI) | payer MEDICARE, MEDICAID, SELFPAY ==
--- NOTE | 2024-03-09 | CA_ITS ---
APPROVED REPORT Exam: Pharmacologic Technologist: Tatianna Monae Ht: 5 ft 9 in Wt: 190 lbs BSA: 2.02 m2 HR: 81 bpm BP: 143/62 mmHg Stress Test Details Test: Lexiscan HR Resting HR: 81 bpm Max Heart Rate (APMHR): 140.290221 bpm Max HR Achieved: 107 bpm Target HR (85% APMHR): 119.329403 bpm % of APMHR: 76.43 Recovery HR: 89 bpm BP Resting BP: 143.0/62.0 mmHg Max BP: 150.0/63.0 mmHg Recovery BP: 147.0/65.0 mmHg ECG Resting ECG: Normal sinus rhythm, right bundle branch block Stress ECG Conclusion Symptoms: None Arrhythmias/Ectopy: Frequent PVC's ST-T Changes: < 1.[address] segment changes. Conclusion: Non-diagnostic Lexiscan stress test. Electronically signed by : Jazmyn Yu MD 03/09/2024 13:03:40
--- NOTE | 2024-03-09 06:23 | NM_ITS ---
APPROVED REPORT Exam: Nuclear Stress Test Indication: soa..fatigue Patient Location: Outpatient Stress Tech: Tatianna Monea [place] Tech:SKYE Rodríguez RT(R)(N) Ht: 5 ft 8 in Wt: 190 lbs HR: 78 bpm BP: 143/62 mmHg BSA: 2.00 m2 TID: 1.15 BMI: 28.8 History: soa..fatigue Procedure: Patient received 0.4 mg of intravenous Lexiscan, resting heart rate 78 bpm, resting blood pressure 143/62 mmHg, with Lexiscan maximum heart rate achieved was 109 bpm which is 85 % of the maximum predicted heart rate and blood pressure was 150/63 mmHg. With Lexiscan, patient denied any complaint of chest pain. The patient was not able to lay on his abdomen for prone images. Cardiac Stress and Resting SPECT Images: Cardiac Stress and Resting SPECT images were obtained using technetium 99m Myoview 32.2 mCi stress and 10.98 mCi at rest. The patient is unable to lie on his abdomen. Therefore, prone stress imaging could not be performed. This may affect the diagnostic interpretation of the study findings. Resting and stress imaging in supine positions demonstrate a large sized, moderate, predominantly reversible perfusion defect in the inferior and inferolateral LV cardoso. Gated imaging demonstrates moderate reduction global LV systolic function. There is severe hypokinesis of the inferior and lateral LV cardoso. LVEF is calculated at 36%. Conclusion: Large sized, moderate, predominantly reversible perfusion defect in the inferior and inferolateral LV cardoso. Findings are suggestive of reversible ischemia. Gated imaging demonstrates moderate reduction global LV systolic function. There is severe hypokinesis of the inferior and lateral LV cardoso. LVEF is calculated at 36%. Electronically signed by : Jazmyn Yu MD 03/10/2024 12:59:56
--- NOTE | 2024-03-09 07:52 | CA_ITS ---
APPROVED REPORT EXAM: Comprehensive 2D, Doppler, and color-flow Echocardiogram Roll Weigher: Kya Buckley RDCS Ht: 5 ft 9 in Wt: 190lbs BSA: 2.02 BP: 158/81 mmHg Indications: SOA,CAD,ABN EKG,MR 2D Dimensions LA Volume 73.20 mL LA Volume Index 36.24 mL/m2 (M/F) 16-34 M-Mode Dimensions RVDd 1.45 cm (0.9-2.6) LA Diam 4.00 cm (1.9-4.0) LVDd 7.32 cm (3.5-5.7) LVDs 6.12 cm (3.5-5.7) IVSd 0.68 cm (0.6-1.1) PWd 0.76 cm (0.6-1.1) EF (Teich) 33.30% FS 16.40% EDV (Teich) 282.50 mL TAPSE 3.03 (<1.7) ESV (Teich) 188.30 mL LV Diastology E Decel Time 210 (160-240 msec) E/A Ratio 0.6 Aortic Valve MELISSA Index 1.35 cm2/m2 AoV Peak Ge. 121.0 (50-130 cm/s) AO Peak GR. 5.90 mmHg AO Mean GR. 2.90 (<5 mmHg) AO VTI 24.3 (18-25 cm) MELISSA (VTI) 2.79 (2.5-4.5 cm2) Mitral Valve MV E Max Ge. 57.0 (40-130 cm/s) MV A Velocity 95.0 (40-130 cm/s) E/A Ratio 0.60 MV PHT 62.0 ms Left Ventricle The left ventricle is normal size. There is normal left ventricular wall thickness. There is normal LV segmental wall motion. Transmitral Doppler flow pattern suggests impaired LV relaxation. LVEF is 50%. Right Ventricle The right ventricle is normal size. The right ventricular systolic function is normal. Atria The left atrium is mildly dilated. The right atrium is mildly dilated. There is no Doppler evidence of interatrial shunt. Aortic Valve Aortic valve is mildly thickened. There is no aortic valvular stenosis. No aortic regurgitation is present. Mitral Valve The mitral valve leaflets are mildly thickened. There is possible prolapse of the posterior MV leaflet. No evidence of mitral valve stenosis. Severe mitral regurgitation is present. The MR jet is eccentric and anteriorly directed. The mechanism of MR is likely degenerative in the setting of posterior MV leaflet prolapse. Tricuspid Valve The tricuspid valve leaflets are thin and pliable. Trace tricuspid regurgitation. There is insufficient TR jet to estimate RVSP. Pulmonic Valve The pulmonary valve is normal in structure. Trace pulmonic regurgitation. Great Vessels The aortic root is normal in size. The ascending aorta is normal in size. IVC is normal in size and collapses >50% with inspiration. Pericardium There is no pericardial effusion. Conclusion Normal LV size with mildly reduced LV systolic function in the setting of significant MR (LVEF 50%). Normal RV size and function. Biatrial dilation. Posterior MV prolapse. Severe MR (eccentric anteriorly directed jet). The mechanism of MR is likely degenerative in the setting of posterior prolapse (Madonna class II). Of note, the patient has undergone previously NATHALIE on 06/12/2016, also demonstrating posterior MV prolapse and severe MR. In the setting of chronic degenerative severe MR, early referral for evaluation (cardiothoracic surgery versus interventional cardiology) is recommended. Electronically signed by : Jazmyn Yu MD 03/16/2024 00:45:44
[2024-03-09] MEDS: ISOTOPE MYOVIEW (PER STUDY) 1 DOSE IV (09:36)
[2024-03-09] MEDS: SODIUM CHLORIDE 0.9% 10ML SYR (RAD ONLY) 10 ML IV ×2 (09:36)
[2024-03-09] MEDS: REGADENOSON 0.4MG/5ML SYRINGE 0.4 MG IV (09:36)
== END 2024-03-09 23:59 | disposition home or self-care (01) ==
LOC: RAD 06:13
PROVIDERS: PCP Nurse Practitioner Family; Visit Provider Physician Assistant
DX: I25.10 Atherosclerotic heart disease of native coronary artery without angina pectoris (principal); R06.00 Dyspnea, unspecified; R53.83 Other fatigue; R42 Dizziness and giddiness; R94.31 Abnormal electrocardiogram [ECG] [EKG]; R06.09 Other forms of dyspnea
CPT/HCPCS: 78452; 93017; 93018; 93306; A9502; J2785

== ENCOUNTER 2024-04-10 07:26 | Day surgery (SDC) | payer MEDICARE, MEDICAID, SELFPAY ==
[2024-04-10] VITALS (11 sets, daily range): BP systolic 121–183; BP diastolic 44–97; PULSE 70–88; RESP 16–22; O2SAT 94–98; BMI 27.6
--- NOTE | 2024-04-10 07:21 | IR_ITS ---
APPROVED REPORT Patient Location: Outpatient Day Care Teacher: Lonnie Alonzo, RT (R) PROCEDURES Selective coronary angiogram Drug-eluting stent deployment to the proximal and mid dominant right coronary artery INDICATION Coronary artery disease, Abnormal Myoview, Systolic congestive heart failure ejection fraction 36% Informed consent was obtained prior to the procedure. COMPLICATIONS NONE Estimated Blood Loss: LESS THAN 10 ML TECHNIQUE One percent lidocaine used to anesthetize the right anterior aspect of the wrist. The right radial artery was accessed via the Seldinger technique. A 6 Spanish sheath was placed in the right radial artery. 2.5 mg of Verapamil, 800 mcg of nitroglycerin, 1mg Lidocaine and 5000 U Heparin were given through the arterial sheath. The 6 Spanish JL 3 guide catheter was used to perform selective coronary angiogram. At the end of the diagnostic angiogram therapeutic heparin was administered giving a therapeutic ACT and the guide catheter was placed in the right coronary artery followed by Choice PT extra-support wire. A 3.5 x 38 mm Regino frontier stent was deployed at 18 alix reducing the stenosis. An additional 3.75 x 12 mm noncompliant balloon was placed in the proximal segment and deployed at 24 alix to post dilate the proximal and midportion of the stent. SAÚL-3 flow was present before and after the procedure. At the end the procedure the apparatus was removed the sheath was removed and hemostasis was achieved using TR banding patient was transferred to the postop holding area in stable condition ANGIOGRAPHIC RESULTS The left main artery Normal The left anterior descending artery Mild proximal and mid vessel 10% luminal regularities The circumflex artery Nondominant with proximal and mid vessel 10 to 20% luminal regularities The right coronary artery Dominant with a proximal concentric 70 to 80% stenosis The KELLY ventriculogram reveals Not performed The left ventricular end-diastolic pressure Not measured IMPRESSION Severe single-vessel coronary disease as described above involving the dominant right coronary Successful stenting of the proximal to mid right coronary artery severe disease reduced to 0% with 1 drug-eluting stent PLAN 1. Plavix and aspirin 2. LDL less than 55 to be achieved with high intensity statin 3. Avoidance of tobacco products 4. Risk factor modification 5. Cardiac rehabilitation 6. Reassess ejection fraction in 90 days. Patient may be a candidate for AICD based on ejection fraction Electronically signed by : Donnell Cheney MD 04/10/2024 10:40:24
[2024-04-10 08:14] LABS: Basophils # 0.1 K/mm3 (0-0.2); Basophils % 0.5 % (0.1-2.0); Eosinophils # 0.1 K/mm3 (0.0-0.4); Eosinophils % 1.2 % (0.1-12.0); Hematocrit 45.8 % (42.0-52.0); Hemoglobin 15.4 g/dL (14.1-18.0); Lymphocytes # 1.5 K/mm3 (0.7-4.5); Mean Corpuscular HGB Conc 33.6 g/dL (31.8-35.4); Mean Corpuscular Hemoglobin 31.1 pg (27.0-31.2); Mean Corpuscular Volume 92.5 fl (80-94); Mean Platelet Volume 9.3 fl (7.4-10.4); Monocytes # 0.4 K/mm3 (0.1-1.0); Monocytes % 4.4 % (1.7-9.3); Neutrophils # 7.6 K/mm3 (1.8-7.8); Neutrophils % 78.5 % (37.0-80.0); Platelet Count 267 K/mm3 (142-424); Red Blood Count 4.95 M/mm3 (4.60-6.20); Red Cell Distribution Width 13.3 % (11.5-17.5); White Blood Count 9.7 K/mm3 (4.8-10.8)
[2024-04-10 08:23] LABS: Chloride 103 mmol/L (98-107); Potassium 3.9 mmoL/L (3.5-5.1); Sodium 138 mmol/L (136-145)
[2024-04-10 08:25] LABS: Blood Urea Nitrogen 15 mg/dl (9-20); Creatinine Clearance Estimated 71 mL/min (50-200); Estimated Glomerular Filt Rate 109 ml/min (>60); GFR (African American) 131 ML/MIN (>60)
[2024-04-10 08:26] LABS: Anion Gap 14.9 mEq/L (5-15); Calcium 9.5 mg/dl (8.4-10.2); Carbon Dioxide 24 mmol/L (22.0-30.0); Glucose 135 mg/dl (74-100)
[2024-04-10] MEDS: VERAPAMIL 2.5MG/ML 2ML VIAL 2.5 MG IV (09:56)
[2024-04-10] MEDS: LIDOCAINE 1% 10ML MDV 20 ML IJ (09:56)
[2024-04-10] MEDS: MIDAZOLAM HCL 1MG/ML 5ML VIAL 1 MG IV (09:57)
[2024-04-10] MEDS: HEPARIN 1,000 UNITS/ML 10ML VIAL (CATH LAB) 10000 UNIT IV (09:57)
[2024-04-10] MEDS: FENTANYL 100MCG/2ML VIAL 50 MCG IV (09:58)
[2024-04-10] MEDS: HEPARIN 1,000 UNITS/500ML NS (CATH LAB) 3000 UNIT IV (09:58)
[2024-04-10] MEDS: diphenhydrAMINE 50MG/ML VIAL 50 MG IV (09:59)
[2024-04-10] MEDS: NITROGLYCERIN 800MCG/8ML SYR (CATH LAB) 800 MCG IA (09:59)
[2024-04-10] MEDS: 0.9 % SODIUM CHLORIDE 500 ML 25 ML IV (10:03)
[2024-04-10] MEDS: CLOPIDOGREL 300MG TABLET 600 MG PO (11:15)
[2024-04-10] MEDS: ASPIRIN 325MG TABLET 325 MG PO (11:15)
[2024-04-10] MEDS: IOPAMIDOL-370 (76%);100ML BOTTLE 70 ML IV (13:22)
[2024-04-10 13:53] LABS: CATHL Activated Clotting Time 262 SEC (74-125)
== END 2024-04-10 14:31 | disposition home or self-care (01) ==
PROVIDERS: PCP Nurse Practitioner Family; Visit Provider Internal Medicine
DX: I25.118 Atherosclerotic heart disease of native coronary artery with other forms of angina pectoris (principal); I45.2 Bifascicular block; I34.0 Nonrheumatic mitral (valve) insufficiency; I50.22 Chronic systolic (congestive) heart failure; I77.1 Stricture of artery; R94.31 Abnormal electrocardiogram [ECG] [EKG]; R94.39 Abnormal result of other cardiovascular function study; Z95.5 Presence of coronary angioplasty implant and graft; Z79.899 Other long term (current) drug therapy
CPT/HCPCS: 80048; 85025; 85347; 92928; 99152; C1725; C1769; C1874; C9600; J1200; J1644; J2250; J3010; Q9967

== ENCOUNTER 2024-04-24 08:59 | Outpatient (CLI) | payer MEDICARE, MEDICAID, SELFPAY ==
[2024-04-24 17:46] LABS: Alanine Aminotransferase 20 U/L (12-78); Albumin Level 4.9 g/dl (3.5-5.0); Albumin/Globulin Ratio 2.2 (1.1-1.8); Alkaline Phosphatase 49 U/L (38-126); Aspartate Amino Transferase 24 U/L (17-59); Bilirubin,Total 1.2 mg/dl (0.2-1.3); Blood Urea Nitrogen 13 mg/dl (9-20); Calcium 9.9 mg/dl (8.4-10.2); Carbon Dioxide 23 mmol/L (22.0-30.0); Chloride 99 mmol/L (98-107); Chol/HDL Ratio 3.3 (1-3.5); Cholesterol 164 mg/dl (140-200); Estimated Glomerular Filt Rate 109 ml/min (>60); GFR (African American) 131 ML/MIN (>60); Globulin 2.2 g/dL (1.3-3.2); Glucose 79 mg/dl (74-100); HDL Cholesterol 49 mg/dl (40-60); Sodium 133 mmol/L (136-145); Total Protein,Serum 7.1 g/dl (6.3-8.2); Triglycerides 79 mg/dl (30-150); VLDL Cholesterol 16 mg/dL (0-40)
[2024-04-24 17:57] LABS: Direct LDL Cholesterol 98.63 mg/dL (100-129)
[2024-04-24 18:16] LABS: Hemoglobin A1C 5.6 % (4.0-6.0)
[2024-04-24 18:27] LABS: Anion Gap 15.6 mEq/L (5-15); Potassium 4.6 mmoL/L (3.5-5.1)
[2024-04-24 19:25] LABS: Creatinine,Urine Random 18 mg/dL (Not Estab.); Microalbumin < 6.000 mg/L (0-16.7)
[2024-04-24 19:38] LABS: Thyroid Stimulating Hormone 1.83 uIU/mL (0.465-4.68)
== END 2024-04-24 23:59 | disposition home or self-care (01) ==
LOC: LAB.DROPOF 04-27 09:00
PROVIDERS: PCP Nurse Practitioner Family; Visit Provider Nurse Practitioner Family
DX: I25.118 Atherosclerotic heart disease of native coronary artery with other forms of angina pectoris (principal); E11.9 Type 2 diabetes mellitus without complications; I34.0 Nonrheumatic mitral (valve) insufficiency; E03.9 Hypothyroidism, unspecified; I10 Essential (primary) hypertension
CPT/HCPCS: 80053; 80061; 82043; 82570; 83036; 84443

== ENCOUNTER 2024-08-14 11:50 | Outpatient (CLI) | payer MEDICARE, MEDICAID, SELFPAY ==
[2024-08-14 14:09] LABS: Alanine Aminotransferase 16 U/L (12-78); Albumin Level 4.9 g/dl (3.5-5.0); Albumin/Globulin Ratio 2.2 (1.1-1.8); Alkaline Phosphatase 54 U/L (38-126); Anion Gap 10.5 mEq/L (5-15); Aspartate Amino Transferase 21 U/L (17-59); Bilirubin,Total 0.9 mg/dl (0.2-1.3); Blood Urea Nitrogen 14 mg/dl (9-20); Calcium 9.5 mg/dl (8.4-10.2); Carbon Dioxide 23 mmol/L (22.0-30.0); Chloride 109 mmol/L (98-107); Chol/HDL Ratio 3.7 (1-3.5); Cholesterol 185 mg/dl (140-200); Estimated Glomerular Filt Rate 109 ml/min (>60); GFR (African American) 131 ML/MIN (>60); Globulin 2.2 g/dL (1.3-3.2); Glucose 91 mg/dl (74-100); HDL Cholesterol 50 mg/dl (40-60); Potassium 4.5 mmoL/L (3.5-5.1); Sodium 138 mmol/L (136-145); Total Protein,Serum 7.1 g/dl (6.3-8.2); Triglycerides 99 mg/dl (30-150); VLDL Cholesterol 20 mg/dL (0-40)
[2024-08-14 14:20] LABS: Direct LDL Cholesterol 123.01 mg/dL (100-129)
[2024-08-14 14:33] LABS: Creatinine,Urine Random 31 mg/dL (Not Estab.); Microalbumin < 6.000 mg/L (0-16.7)
[2024-08-14 14:40] LABS: Prostate Specific Ag Screen 2.4 ng/ml (0.0-4.0); Thyroid Stimulating Hormone 2.07 uIU/mL (0.465-4.68)
== END 2024-08-14 23:59 | disposition home or self-care (01) ==
LOC: LAB.DROPOF 08-17 10:47
PROVIDERS: PCP Nurse Practitioner Family; Visit Provider Nurse Practitioner Family
DX: Z12.5 Encounter for screening for malignant neoplasm of prostate (principal); E11.9 Type 2 diabetes mellitus without complications; I10 Essential (primary) hypertension; E03.9 Hypothyroidism, unspecified
CPT/HCPCS: 80053; 80061; 82043; 82570; 84443; G0103

== ENCOUNTER 2024-12-01 16:11 | Outpatient (CLI) | payer MEDICARE, MEDICAID, SELFPAY ==
[2024-12-01 17:49] LABS: Hematocrit 44.3 % (42.0-52.0); Hemoglobin 14.7 g/dL (14.1-18.0); Immature Granulocytes % 0.5 %; Mean Corpuscular HGB Conc 33.2 g/dL (31.8-35.4); Mean Corpuscular Hemoglobin 31.1 pg (27.0-31.2); Mean Corpuscular Volume 93.7 fl (80-94); Nucleated Red Blood Cells % 0 %; Platelet Count 228 K/mm3 (142-424); Red Blood Count 4.73 M/mm3 (4.60-6.20); Red Cell Distribution Width-SD 48.2 fL; White Blood Count 7.6 K/mm3 (4.8-10.8)
[2024-12-01 18:21] LABS: Cholesterol 173 mg/dl (140-200); HDL Cholesterol 43 mg/dl (40-60); Triglycerides 90 mg/dl (30-150)
[2024-12-01 18:53] LABS: Hemoglobin A1C 5.8 % (4.0-6.0); Thyroid Stimulating Hormone 2.62 uIU/mL (0.465-4.68)
--- OUTSIDE RECORDS SUMMARY | 2024-12-02 13:10 | XMS_ITS | Clinical Summary ---
Author Organization Healthcare Address [address] [place] [address] Care Team Providers Care Body Engineer Name Role Phone Lucian Nance MD Primary Care Provider [phone] Family History Medical History Relation Name Comments Alcohol abuse Father Diabetes Mother Lung cancer Mother Relation Name Status Comments Father Mother Social History Tobacco Use Types Packs/Day Years Used Date Smoking Tobacco: Former Alcohol Use Standard Drinks/Week Comments No 0 (1 standard drink = 0.6 oz pur e alcohol) Sex and Gender Information Value Date Recorded Sex Assigned at Not on file Legal Sex Male 6:22 PM EDT Gender Identity Not on file Sexual Orientation Not on file Last Filed Vital Signs Vital Sign Reading Time Taken Comments Blood Pressure - - Pulse - - Temperature - - Respiratory Rate - - Oxygen Saturation - - Inhaled Oxygen Concentration - - Weight 85.3 kg (188 lb 0.1 oz) 06/28/2016 9:39 A M EDT Height 175.3 cm (5' 9 ) 06/28/2016 9:39 AM EDT Body Mass Index 27.76 06/28/2016 9:39 AM EDT Plan of Treatment Not on file Care Teams Body Engineer Relationship Specialty Start Date End Date Lucian Nance MD [facility] [place] [place] [address] PCP - General 08/19/20
== END 2024-12-01 23:59 | disposition home or self-care (01) ==
LOC: LAB.DROPOF 12-02 13:03
PROVIDERS: PCP Nurse Practitioner Family; Visit Provider Nurse Practitioner Family
DX: E03.9 Hypothyroidism, unspecified (principal); E11.9 Type 2 diabetes mellitus without complications
CPT/HCPCS: 80061; 82043; 82570; 83036; 84443; 85025

== ENCOUNTER 2025-03-23 15:28 | Outpatient (CLI) | payer MEDICARE, MEDICAID, SELFPAY ==
--- OUTSIDE RECORDS SUMMARY | 2025-03-24 18:59 | XMS_ITS | Continuity of Care Document ---
Author Organization [facility], [facility] Address [address] [place] [address] Assessment No assessment recorded. Plan of Treatment Reminders Order Date Submit Date Provider Last Modified By Organization Details Last Modified Time Details Appointments None recorded. Lab None recorded. Referral None recorded. Procedures None recorded. Surgeries None recorded. Imaging None recorded. Medication Orders doxycycline hyclate 100 mg capsule 2024 025 [facility], [address] [place] [address], [id number], 5 05:02:12 prednisone 20 mg tablet 2024 025 [facility], [address] [place] [address], [id number], 5 05:02:07 Patient TargetsNo targets recorded. Patient InstructionsNo instructions recorded. Reason for Referral None Reported. Problems Name Problem SNOMED Code Status Onset Date Resolution Date Notes Provider Name and Address Organization Details Recorded Time Type 2 diabetes mellitus 13460325 Active Apoorva Henson null, [facility] 3 10:00:11 Hyperlipidemia 68821856 Active Barbra Hensno null, [facility] 3 10:00:22 Pruritic rash 85234323 Active 2022 Lonnie Landis, VINAY [address], [place], [address] , [place] [facility] 3 10:09:03 Problem Notes None recorded. Procedures Surgical History Date Name Laterality Status Provider Name and Address Organization Details Recorded Time cardiac catheterization completed Nicole Mederos [facility] 01/01/2023 13:59:51 placement of stent in pulmonary artery completed Nicole Keys [place] - [facility] 06/02/2024 09:03:49 cardiac catheterization completed Nicole Yesis [place] - [facility] 06/02/2024 09:03:41 Imaging Results None recorded. Procedure Notes None recorded. Medical Equipment None Reported. Allergies No known drug allergies Medications Name Sig Start Date Stop Date Status Note LastModified by Organization Details LastModified Time atorvastati n 40 mg tablet TAKE ONE TABLET BY MOUTH EVERY NIGHT AT BEDTIME active Not Available Not Available No t Available prednisone 10 mg tablet TAKE ONE TABLET BY MOUTH TWICE DAILY FOR 5 DAYS --TAKE WITH FOOD-- 02/20 completed Not Available Not Available Not Available doxycycline hyclate 100 mg capsule Take 1 capsule twice a day by oral route for 7 days. 03/01 completed Not Available Not Available Not Available atorvastati n 20 mg tablet TAKE ONE TABLET BY MOUTH EVERY DAY 11/11 completed Not Available Not Available Not Available azithromyci n 250 mg tablet TAKE 2 TABLETS BY MOUTH ON DAY 1, THEN TAKE 1 TABLET DAILY ON DAYS 2-5 10/19 completed Not Available Not Available Not Available prednisone 20 mg tablet Take 1 tablet twice a day by oral route for 5 days. 02/27 completed Not Available Not Available Not Available permethrin 5 % topical cream THROUGHLY MASSAGE INTO SKIN FROM HEAD TO SOLES OF FEET DIRECTED THEN REMOVE BY WASHING (SHOWER OR BATH) AFTER 8 TO 14 HOURS active Not Available Not Available No t Available clopidogrel 75 mg tablet TAKE ONE TABLET BY MOUTH EVERY DAY active Not Available Not Available No t Available ketorolac 10 mg tablet TAKE ONE TABLET BY MOUTH EVERY 8 HOURS NEEDED FOR PAIN FOR 4 DAYS ONLY --TAKE WITH FOOD-- 11/11 completed Not Available Not Available Not Available alprazolam 0.25 mg tablet TAKE ONE TABLET BY MOUTH THREE TIMES DAILY NEEDED FOR ANXIETY MAY CAUSE DROWSINES S active Not Available Not Available No t Available meclizine 25 mg tablet TAKE ONE TABLET BY MOUTH THREE TIMES DAILY NEEDED FOR dizziness 11/11 completed Not Available Not Available Not Available benzonatate 100 mg capsule Take 1 capsule twice a day by oral route for 5 days. 03/01 completed Not Available Not Available Not Available levothyroxi ne 50 mcg tablet TAKE ONE TABLET BY MOUTH EVERY DAY FOR hypothyro id active Not Available Not Available No t Available lisinopril 10 mg tablet TAKE ONE TABLET BY MOUTH EVERY DAY 11/11 completed Not Available Not Available Not Available aspirin 81 mg chewable tablet chew 1 TABLET BY MOUTH EVERY DAY active Not Available Not Available No t Available lisinopril 5 mg tablet TAKE ONE TABLET BY MOUTH EVERY DAY active Not Available Not Available No t Available metoprolol succinate ER 25 mg tablet,exte nded release 24 hr TAKE ONE TABLET BY MOUTH EVERY DAY active Not Available Not Available No t Available dexamethaso ne sodium phosphate 4 mg/mL injection solution Inject 1 mL by intramusc ular route as directed. 02/15 completed Not Available Not Available Not Available albuterol sulfate HFA 90 mcg/actuati on aerosol inhaler INHALE TWO PUFFS BY MOUTH EVERY 4 TO 6 HOURS NEEDED FOR SHORTNESS OF BREATH OR wheezing active Not Available Not Available No t Available fluoxetine 20 mg capsule TAKE ONE CAPSULE BY MOUTH EVERY DAY 11/11 completed Not Available Not Available Not Available metformin ER 500 mg tablet,exte nded release 24 hr TAKE ONE TABLET BY MOUTH EVERY DAY with THE evening meal 11/11 completed Not Available Not Available Not Available Easy Touch Test Strip USE DIRECTED ONCE DAILY active Not Available Not Available No t Available Vitals Date Recorded Body height Body mass index (BMI) Body weight Heart rate Oxygen saturation Respiratory rate Pain severity - 0-10 verbal numeric rating [Score] - Reported Systolic And Diastolic Provider Name and Address Organization Details Last Updated DateTime 5 175.26 cm 29.5 kg/m2 33205.4 7 g 70 /min 97 % 20 /min 0 142/68 mm[Hg] Apoorva Henson [place] - [facility] 5 10:49:09 Social History Question Answer Notes LastModified by Organizat ion Details LastModified Time Tobacco Smoking Status Former Smoker Apoorva meade [place] - [facility] 10/19/2022 10:00:51 Do You Have An Advance Directive? No Information not available 12/14/2022 Are You Blind Or Do You Have Difficulty Seeing? No Information not available 12/14/2022 What Is Your Level Of Caffeine Consumption? Moderate Information not available 12/14/2022 Are You Deaf Or Do You Have Serious Difficulty Hearing? No Information not available 12/14/2022 What Type Of Diet Are You Following? REGULAR Information not available 12/14/2022 Have There Been Any Changes To Your Family Or Social Situation? No Information not available 12/14/2022 What Is The Fluoride Status Of Your Home? Unknown Information not available 12/14/2022 When Did You Quit Smoking? 16+yearssince lastcigarette Information not available 10/19/2022 Do You Have A Medical Power Of Adjunct Political Science Instructor? No Information not available 12/14/2022 What Was The Date Of Your Most Recent Tobacco Screening? 02/11/2025 Information not available 02/11/2025 Do You Have Smoke And Carbon Monoxide Detectors In Your Home? Yes Information not available 12/14/2022 At What Age Did You Start Smoking Tobacco? 13 Information not available 12/14/2022 Has Tobacco Cessation Counseling Been Provided? No Information not available 10/19/2022 Do You Have Difficulty Walking Or Climbing Stairs? No Information not available 12/14/2022 Sex: Male Functional Status Question Answer Note LastModified by Organizat ion Details LastModified Time Do you use any illicit or recreational drugs? No Information not available 12/14/2022 Do you or have you ever used any other forms of tobacco or nicotine? No Information not available 12/14/2022 What is your level of alcohol consumption? None Information not available 12/14/2022 Are you currently employed? No Information not available 12/14/2022 Do you have transportation difficulties? No Information not available 12/14/2022 Are you able to walk independently without assistance or assistive devices? YESWOREST Information not available 12/14/2022 Do you have difficulty doing errands alone? No Information not available 12/14/2022 Are you able to care for yourself independently? Yes Information not available 12/14/2022 Do you have difficulty dressing, bathing, grooming, or toileting? No Information not available 12/14/2022 What is your exercise level? None Information not available 12/14/2022 Mental Status Question Answer Note LastModified by Organizat ion Details LastModified Time Do you feel stressed (tense, restless, nervous, or anxious, or unable to sleep at night)? [id number] Information not available 12/14/2022 Do you have difficulty concentrating, remembering or making decisions? No Information no t available 12/14/2022 Family History Relationship Description Onset Age of this Age Resolved Age Notes LastModified by Organization Details LastModified Time Father No current problems or disability bstears Not available 12/14 12:30:28 Mother No current problems or disability bstears Not available 12/14 12:30:28 Medical History No medical history recorded. Immunizations Vaccine Type Date Status Note Provider Nam e and Address Organization Details Recorded Time COVID-19, mRNA, LNP-S, bivalent, PF, 50 mcg/0.5 mL or 25mcg/0.25 mL dose 2 completed Apoorva Henson null, [place] - [facility] 02/16/2022 13:57:16 Influenza, high-dose, quadrivalent, PF 3 completed Apoorva H[place] - [facility] 01/14/2023 14:40:45 COVID-19, mRNA, LNP-S, PF, yee-sucrose, 30 mcg/0.3 mL 3 completed Nicole Keys null, [place] - [facility] 02/19/2023 14:15:22 Influenza, high-dose, trivalent, PF 4 completed Nicole Stears null, [place] - [facility] 02/10/2024 14:22:13 Pneumococcal conjugate PCV20, polysaccharide [id number] conjugate, adjuvant, PF 4 completed Jessi Reid, BOBTAIL DRIVER [address], [place], [address], [place] [facility] 03/19/2024 13:57:06 Influenza, high-dose, trivalent, PF 5 completed Nicole Mederos null, [place] - [facility] 01/04/2025 15:04:15 COVID-19, mRNA, LNP-S, PF, 100 mcg/0.5mL dose or 50 mcg/0.25mL dose 1 completed Apoorva H[place] [facility] 02/16/2022 13:33:53 COVID-19, mRNA, LNP-S, PF, 100 mcg/0.5mL dose or 50 mcg/0.25mL dose 2 completed Apoorva [place] [facility] 02/16/2022 13:33:53 Hep A, adult 9 completed Apoorva [place] [facility] 02/16/2022 13:33:53 zoster recombinant 9 completed Apoorva [place] [facility] 02/16/2022 13:33:53 Tdap 2 completed Apoorva [place] [facility] 02/16/2022 13:33:53 zoster recombinant 2 completed Apoorva [place] [facility] 02/16/2022 13:33:53 Pneumococcal conjugate PCV 13 8 completed Apoorva [place] [facility] 02/16/2022 13:33:53 COVID-19, mRNA, LNP-S, PF, 100 mcg/0.5mL dose or 50 mcg/0.25mL dose 1 completed Apoorva [place] [facility] 02/16/2022 13:33:53 zoster recombinant 1 completed Apoorva [place] [facility] 02/16/2022 13:33:53 Influenza, high-dose, quadrivalent, PF 2 completed Apoorva [place] [facility] 02/16/2022 13:33:53 Influenza, high-dose, quadrivalent, PF 0 completed Apoorva [place] [facility] 02/16/2022 13:33:53 COVID-19, mRNA, LNP-S, PF, 100 mcg/0.5mL dose or 50 mcg/0.25mL dose 1 completed Apoorva H[place] [facility] 02/16/2022 13:33:53 Past Encounters Encounter ID Performer Location Encounter Start Date Encounter Closed Date Diagnosis/Indication Diagnosis SNOMED-CT Code Diagnosis ICD10 Code Diagnosis IMO Codes Diagnosis Note [id number] Jessi Reid APRN [address] [address] 02/11/2025 10:29:22 02/11/2025 11:37:16 Allergic rhinitis 05713233 J30.9 11376241 [id number] Jessi Reid APRN [address] [address] 02/15/2025 10:30:57 02/15/2025 11:08:45 Acute maxillary sinusitis 60192556 J01.00 43124093 if no improvemen t or worsening return Bronchitis 72294770 J40 01494 if no improvemen t or worsening returnwatc h glucose close from steroids Health Concerns Section Related Observation LastModified by Organization Detai ls LastModified Time None Recorded Concern Status LastModified by Organization Details LastModified Time None Recorded Payers Encounter Date Sequence Insurance Name Policy Number Policy Parker Covered Member ID Parker Member ID Guarantor Name 02/15/2025 1 [facility] - DUAL ELIGIBLE (MEDICARE REPLACEMENT/A DVANTAGE - HMO) BELADSHELEN Villalobos [id number] Milind Villalobos Notes Date Note Type Note Provider Name and Address Organization Details Recorded Time 02/15/2025 text/html ROS as noted in the HPI 79 yr old male presents for congestion, sinus pressure, tenderness and productive cough of yellow phlegm. Unable to sleep for coughing all night. Jessi Reid APRN [address], [place], [address], [place] - [facility] 02/15/2025 11:46:42
--- OUTSIDE RECORDS SUMMARY | 2025-03-24 18:59 | XMS_ITS | Continuity of Care Document ---
Author Organization [facility] Address [address] [place] [address] Assessment No assessment recorded. Plan of Treatment Reminders Order Date Submit Date Provider Last Modified By Organization Details Last Modified Time Details Appointments None recorded. Lab None recorded. Referral None recorded. Procedures None recorded. Surgeries None recorded. Imaging None recorded. Medication Orders dexamethaso ne sodium phosphate 4 mg/mL injection solution 2024 025 cbuckler Not available 5 10:47:01 Patient TargetsNo targets recorded. Patient InstructionsNo instructions recorded. Reason for Referral None Reported. Problems Name Problem SNOMED Code Status Onset Date Resolution Date Notes Provider Name and Address Organization Details Recorded Time Type 2 diabetes mellitus 91774131 Active Apoorva Henson [facility] 3 10:00:11 Hyperlipidemia 96225552 Active Barbra Henson [facility] 3 10:00:22 Pruritic rash 73797603 Active 2022 Lonnie Landis, ANESTHESIOLOGY CRNA [address], [address] , [facility] 3 10:09:03 Problem Notes None recorded. Procedures Surgical History Date Name Laterality Status Provider Name and Address Organization Details Recorded Time cardiac catheterization completed Nicole Stears [facility] 01/01/2023 13:59:51 placement of stent in pulmonary artery completed Nicole Stears [facility] 06/02/2024 09:03:49 cardiac catheterization completed Nicole Stears [facility] 06/02/2024 09:03:41 Imaging Results None recorded. Procedure [...] mass index (BMI) Body weight Heart rate Body temperature Oxygen saturation Respiratory rate Pain severity - 0-10 verbal numeric rating [Score] - Reported Systolic And Diastolic Provider Name and Address Organization Details Last Updated DateTime 5 175.26 cm 29.4 kg/m2 35509.8 8 g 60 /min 98 [degF] 96 % 18 /min 0 138/72 mm[Hg] Apoorva Henson [place] - [facility] 5 10:54:41 Social History Question Answer Notes LastModified by Organizat ion Details LastModified Time Tobacco Smoking Status Former Smoker Apoorva H[place] null, [place] - [facility] 10/19/2022 10:00:51 Do You [...] Do You Have A Medical Power Of Woodenware Assembler? No Information not available 12/14/2022 What Was [...] anxious, or unable to sleep at night)? [id number] Information not available 12/14/2022 Do you have [...] mL dose 2 completed Apoorva H[place] null[place] [facility] 02/16/2022 13:57:16 Influenza, high-dose, quadrivalent, PF 3 completed Apoorva [place] [facility] 01/14/2023 14:40:45 COVID-19, mRNA, LNP-S, PF, yee-sucrose, 30 mcg/0.3 mL 3 completed Nicole Stears [place] [facility] 02/19/2023 14:15:22 Influenza, high-dose, trivalent, PF 4 completed Nicole Stears [place] [facility] 02/10/2024 14:22:13 Pneumococcal conjugate PCV20, polysaccharide [id number] conjugate, adjuvant, PF 4 completed Jessi Reid, ANESTHESIOLOGY CRNA [address], [place], [address] [place] - [facility] 03/19/2024 13:57:06 Influenza, high-dose, trivalent, PF 5 completed Nicole Mederos null[place] [facility] 01/04/2025 15:04:15 COVID-19, mRNA, LNP-S, PF, 100 mcg/0.5mL dose or 50 mcg/0.25mL dose 1 completed Apoorva H[place] [facility] 02/16/2022 13:33:53 COVID-19, mRNA, LNP-S, PF, 100 mcg/0.5mL dose or 50 mcg/0.25mL dose 2 completed Apoorva Sixto null[place] [facility] 02/16/2022 13:33:53 Hep A, adult 9 completed Apoorva Sixto [place] [facility] 02/16/2022 13:33:53 zoster recombinant 9 completed Apoorva Sixto [place] [facility] 02/16/2022 13:33:53 Tdap 2 completed Apoorva Sixto [place] [facility] 02/16/2022 13:33:53 zoster recombinant 2 completed Apoorva Sixto [place] [facility] 02/16/2022 13:33:53 Pneumococcal conjugate PCV 13 8 completed Apoorva Sixto [place] [facility] 02/16/2022 13:33:53 COVID-19, mRNA, LNP-S, PF, 100 mcg/0.5mL dose or 50 mcg/0.25mL dose 1 completed Apoorva Sixto [place] [facility] 02/16/2022 13:33:53 zoster recombinant 1 completed Apoorva Sixto [place] [facility] 02/16/2022 13:33:53 Influenza, high-dose, quadrivalent, PF 2 completed Apoorva [place]xt[place] [facility] 02/16/2022 13:33:53 Influenza, high-dose, quadrivalent, PF 0 completed Apoorva Sixto [place] [facility] 02/16/2022 13:33:53 COVID-19, mRNA, LNP-S, PF, 100 mcg/0.5mL dose or 50 mcg/0.25mL dose 1 completed Apoorva Sixto [place] [facility] 02/16/2022 13:33:53 Past Encounters Encounter ID Performer Location Encounter Start Date Encounter Closed Date Diagnosis/Indication Diagnosis SNOMED-CT Code Diagnosis ICD10 Code Diagnosis IMO Codes Diagnosis Note [id number] Jessi Reid APRN [address] [address] 02/11/2025 10:29:22 02/11/2025 11:37:16 Allergic rhinitis 68365025 J30.9 99503171 Health Concerns Section Related Observation LastModified by Organization Detai ls LastModified Time None Recorded Concern Status LastModified by Organization Details LastModified Time None Recorded Payers Encounter Date Sequence Insurance Name Policy Number Policy Parker Covered Member ID Parker Member ID Guarantor Name 02/11/2025 1 [facility] - DUAL ELIGIBLE (MEDICARE REPLACEMENT/A DVANTAGE - HMO) [id number] Milind Villalobos [id number] Milind Villalobos Notes Date Note Type Note Provider Name and Address Organization Details Recorded Time 02/11/2025 text/html 79 yr old male presents for clear sinus drainage, sinus pressure,tender ness, post nasal drainage and throat irritated. He stated it started after using wood heat. Jessi Reid, ANESTHESIOLOGY CRNA [address], [place], [address], [place] [facility] 02/11/2025 13:04:34
--- OUTSIDE RECORDS SUMMARY | 2025-03-24 18:59 | XMS_ITS | Data Portability ---
Author Organization [facility] Address [address] [place] [address] Assessment No assessment recorded. Plan of Treatment Reminders Order Date Submit Date Provider Last Modified By Organization Details Last Modified Time Details Appointments None recorded. Lab rapid flu (A+B) 2024 025 [facility], [address] [place] [address], [id number], 5 09:59:18 rapid SARS CoV + SARS CoV 2 Ag, IA, respiratory specimen 2024 025 [facility], [address] [place] [address], [phone], 5 09:59:18 Referral None recorded. Procedures None recorded. Surgeries None recorded. Imaging None recorded. Medication Orders doxycycline hyclate 100 mg capsule 2024 025 [facility], [address] [place] [address], [address], 5 05:02:12 prednisone 20 mg tablet 2024 025 [facility], [address] [place] [address], [id number], 5 05:02:07 dexamethaso ne sodium phosphate 4 mg/mL injection solution 2024 025 gabby Not available 10:47:01 doxycycline hyclate 100 mg capsule 2024 025 [facility], [address] [place] [address], [id number], 05:02:12 dexamethaso ne sodium phosphate 4 mg/mL injection solution 2024 025 [email or web address] Not available 10:47:01 Patient TargetsNo targets recorded. Patient InstructionsNo instructions recorded. Reason for Referral None Reported. Results Created Date Observation Date Name Description Value Unit Range Abnormal Flag Note LastModifiedBy Organization Detail LastModifiedTime 06/02/1906/02/2024 rapid SARS CoV + SARS CoV 2 Ag, QL [place], respi rator y speci men SARS CoV antigen Invali d Not Available [address], [address], 06/02/2024 08:58:39 06/02/1906/02/2024 rapid flu (A+B) Flu negati ve Not Available [address], [address], 06/02/2024 08:58:33 06/02/1906/02/2024 rapid flu (A+B) Type Both A & B Not Available [address], [address], 06/02/2024 08:58:33 02/21/2002/21/2024 elect rocar diogr am No observ ation record ed. [email or web address] [address], [address], 02/24/2024 09:04:09 02/28/2002/21/2024 elect rocar diogr am No observ ation record ed. [email or web address] [address], [address], 02/28/2024 16:19:04 Result Notes None recorded. Problems Name Problem SNOMED Code Status Onset Date Resolution Date Notes Provider Name and Address Organization Details Recorded Time Type 2 diabetes mellitus 83819860 Active Apoorva Henson null, [place] - [facility] 3 10:00:11 Hyperlipidemia 24076789 Active Barbra Henson null, [place] - [facility] 3 10:00:22 Pruritic rash 09859880 Active 2022 Lonnie Boby, HEALTH TECHNICAL WRITER [address], [place], [address] , [place] - [facility] 3 10:09:03 Problem Notes None recorded. 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 Procedure [...] height Body mass index (BMI) Body weight Body temperature Heart rate Oxygen saturation Systolic And Diastolic Provider Name and Address Organization Details Last Updated DateTime 5 175.26 cm 27.6 kg/m2 18527.7 7 g 97.8 [degF] 76 /min 97 % 122/74 mm[Hg] Nicole Keys [place] - [facility] 5 09:02:17 Date Recorded Body height Body mass index (BMI) Body weight Heart rate Body temperature Oxygen saturation Respiratory rate Pain severity - 0-10 verbal numeric rating [Score] - Reported Systolic And Diastolic Provider Name and Address Organization Details Last Updated DateTime 5 175.26 cm 29.4 kg/m2 28897.8 8 g 60 /min 98 [degF] 96 % 18 /min 0 138/72 mm[Hg] Apoorva Henson [place] - [facility] 5 10:54:41 Date Recorded Body height Body mass index (BMI) Body weight Heart rate Oxygen saturation Respiratory rate Pain severity - 0-10 verbal numeric rating [Score] - Reported Systolic And Diastolic Provider Name and Address Organization Details Last Updated DateTime 5 175.26 cm 29.5 kg/m2 11641.4 7 g 70 /min 97 % 20 /min 0 142/68 mm[Hg] Apoorva Henson [place] - [facility] 5 10:49:09 Date Recorded Body height Respiratory rate Body mass index (BMI) Body weight Heart rate Oxygen saturation Body temperature Systolic And Diastolic Provider Name and Address Organization Details Last Updated DateTime 4 175.26 cm 18 /min 27.9 kg/m2 19831.3 6 g 72 /min 96 % 97.9 [degF] 136/68 mm[Hg] Nicole Keyangelica [place] - [facility] 4 13:38:46 Social History Question Answer Notes LastModified by Organizat ion Details LastModified Time Tobacco Smoking Status Former Smoker Apoorva meade [facility] 10/19/2022 10:00:51 Do You Have An [...] Do You Have A Medical Power Of Replanting Machine Crewman? No Information not available 12/14/2022 What Was [...] anxious, or unable to sleep at night)? [id number] Information not available 12/14/2022 Do you have [...] mL dose 2 completed Apoorva H[place] null[place] - [facility] 02/16/2022 13:57:16 Influenza, high-dose, quadrivalent, PF 3 completed Apoorva [place] [facility] 01/14/2023 14:40:45 COVID-19, mRNA, LNP-S, PF, yee-sucrose, 30 mcg/0.3 mL 3 completed Nicole Stears [place] - [facility] 02/19/2023 14:15:22 Influenza, high-dose, trivalent, PF 4 completed Nicole Ste[place] [facility] 02/10/2024 14:22:13 Pneumococcal conjugate PCV20, polysaccharide [id number] conjugate, adjuvant, PF 4 completed Jessi Reid, HEALTH TECHNICAL WRITER [address], [place], [address], [place] [facility] 03/19/2024 13:57:06 Influenza, high-dose, trivalent, PF 5 completed Nicole Stears [place], [place] - [facility] 01/04/2025 15:04:15 COVID-19, mRNA, LNP-S, PF, 100 mcg/0.5mL dose or 50 mcg/0.25mL dose 1 completed Apoorva Olivasler null, [place] - [facility] 02/16/2022 13:33:53 COVID-19, mRNA, LNP-S, PF, 100 mcg/0.5mL dose or 50 mcg/0.25mL dose 2 completed Apoorva Olivasler null, [place] - [facility] 02/16/2022 13:33:53 Hep [...] or 50 mcg/0.25mL dose 1 completed Apoorva Olivasler [place] - [facility] 02/16/2022 13:33:53 zoster recombinant 1 completed Apoorva Olivasler [place] - [facility] 02/16/2022 13:33:53 Influenza, [...] ICD10 Code Diagnosis IMO Codes Diagnosis Note [id number] Jessi Reid [address] [address] 01/09/2022 14:33:12 01/09/2022 16:22:04 Influenza vaccine needed 9427196429 106 Z23 [id number] Jessi Reid[address] [address] 02/16/2022 13:29:31 02/16/2022 13:45:50 Administration of SARS-CoV-2 antigen vaccine 756694679 Z23 [id number] Lonnie Landis[address] [address] 10/19/2022 09:02:45 10/19/2022 10:34:13 Pruritic rash 37882611 L28.2 W57.XXXA [id number] [facility] [address] 12/14/2022 12:27:17 12/14/2022 13:32:18 COVID-19 148955974 U07.1 no sign of a bacterial infection. likely viral. viruses can take 7-14 days to run their course.alexa al saline and bulb syringe to remove nasal drainage to help with congestion .monitor temp. Tylenol or Motrin as needed for pain or fever.enco urage fluids, water, Gatorade, power aide, Pedialyte if infant/tod dler/child warm salt water gargleswar m fluidssore throat lozengessl eep elevatedhu midifier/v aporizerfo llow up immediatel y for new or worsening symptoms or no noticeable improvemen t over the next 48-72 hours [id number] Jessi Swaindinesh [address] [address] 01/01/2023 13:44:16 01/01/2023 14:21:41 Fatigue 00266509 R53.83 pt refuses labs states he feels better today wants to wait till next visit [id number] Jessi Reid [place] [address] 01/14/2023 13:23:47 01/14/2023 13:42:31 Influenza vaccine needed 5235245385 106 Z23 Needs infl uenza immunization 700033751 Z28.39 [id number] [facility] [place] [address] 02/19/2023 13:56:53 02/19/2023 14:32:34 Administration of SARS-CoV-2 antigen vaccine 114687157 Z23 [id number] Lilachely Reid [place] [address] 11/12/2023 13:22:54 11/12/2023 14:11:03 Strain of neck muscle 867269404 S16.1XXA rotate heat and icerestste roidsmuscl e patchif no improvemen t return for more work up [id number] [facility] [address] 02/10/2024 13:54:46 02/10/2024 14:27:52 Influenza vaccine needed 1597072685 106 Z23 [id number] Jessi Swaindinesh[address] [address] 02/21/2024 09:35:26 02/21/2024 10:47:08 Dizziness 087391462 R42 Right [facility] [address] I45.10 advised to go to ed- pt states he will saturdaylo discussion with pt on risk of not getting checked out and he declinedof fered to call ems and he declinedag madhurin advised pt to go to ed for eval- he declined [id number] Lilachely dinesh [address] [address] 03/19/2024 13:29:59 03/19/2024 13:51:11 Active or passive immunization 142847155 Z23 [id number] [place] [id number] 06/02/2024 08:52:20 06/02/2024 10:23:49 Acute bronchitis 81219504 J20.9 if no improvemen t or worsening returnwatc h glucose close from steroids Acute maxi llary sinusitis 36867294 J01.00 if no improvemen t or worsening return [id number] [facility] [place] [id number] 01/04/2025 14:37:33 01/04/2025 15:10:07 Influenza vaccine needed 6155483773 106 Z23 [id number] [facility] [place] [id number] 02/11/2025 10:29:22 02/11/2025 11:37:16 Allergic rhinitis 34428801 J30.9 53865134 [id number] [place] [address] 02/15/2025 10:30:57 02/15/2025 11:08:45 Acute maxillary sinusitis 70894019 J01.00 46822868 if no improvemen t or worsening return Bronchitis 56363470 J40 75209 if no improvemen t or worsening returnwatc h glucose close from steroids Health Concerns Section Related Observation LastModified by Organization Detai ls LastModified Time None Recorded Concern Status LastModified by Organization Details LastModified Time None Recorded Advance Directives Directive N: Payers Insurance Date Sequence Insurance Name Policy Number Policy Parker Covered Member ID Parker Member ID Guarantor Name 01/04/2025 1 [employer] (MEDICARE REPLACEMENT HMO) [id number] Milind Villalobos [id number] Milind Villalobos 02/10/2025 1 [facility] - DUAL ELIGIBLE (MEDICARE REPLACEMENT/A DVANTAGE - HMO) [id number] Milind Villalobos [id number] Milind Wilfredo 02/10/2025 [place] Milind Villalobos [id number] Milind Wilfredo Notes Date Note Type Note Provider Name and Address Organization Details Recorded Time 03/19/2024 text/html ROS as noted in the HPI 78 year old male who presents to the office today with concerns ofneeding pneumonia vaccine. pt states he is having a stent placed the Apr Jessi Reid APRN [address], [place], [address], [place] - [facility] 03/19/2024 13:57:44 06/02/2024 text/html ROS as noted in the HPI 78 year old male who presents to the office today with concerns ofcough, congestion, sinus pressure,chest congestion for 3 days Jessi Reid APRN [address], [place], [address], [place] - [facility] 06/02/2024 10:01:15 01/04/2025 text/html flu shot Nicole Stears [facility], [place] - [facility] 01/04/2025 15:07:51 02/11/2025 text/html 79 yr old male presents for clear sinus drainage, sinus pressure,tenderne ss, post nasal drainage and throat irritated. He stated it started after using wood heat. Jessi Reid APRN [address], [place], [address], [place] - [facility] 02/11/2025 13:04:34 02/15/2025 text/html ROS as noted in the HPI 79 yr old male presents for congestion, sinus pressure, tenderness and productive cough of yellow phlegm. Unable to sleep for coughing all night. Jessi Reid APRN [address], [place], [address], [place] - [facility] 02/15/2025 11:46:42
--- OUTSIDE RECORDS SUMMARY | 2025-03-24 18:59 | XMS_ITS | Clinical Summary ---
Author Organization Healthcare Address [address] [place] [address] Care Team Providers Care Software Development Advisor Name Role Phone Lucian Nance MD Primary Care Provider Family History Medical History Relation Name Comments [...] of Treatment Not on file Care Teams Software Development Advisor Relationship Specialty Start Date End Date Lucian Nance MD [facility] [place] [address] PCP - General 08/19/20
--- OUTSIDE RECORDS SUMMARY | 2025-03-24 18:59 | XMS_ITS | Continuity of Care Document ---
Author Organization [facility] Address [address] [place] [address] Assessment No assessment recorded. Plan of Treatment Reminders Order Date Submit Date Provider Last Modified By Organization Details Last Modified Time Details Appointments None record ed. Lab None record ed. Referral None record ed. Procedures None record ed. Surgeries None record ed. Imaging None record ed. Medication Orders None record ed. Patient TargetsNo targets recorded. Patient InstructionsNo instructions recorded. Reason for Referral None Reported. Problems Name Problem SNOMED Code Status Onset Date Resolution Date Notes Provider Name and Address Organization Details Recorded Time Type 2 diabetes mellitus 98712251 Active Apoorva eHnson [facility] 3 10:00:11 Hyperlipidemia 07838457 Active Barbra Henson [facility] 3 10:00:22 Pruritic rash 23477654 Active 2022 Lonnie Landis, QUARTER DOPER [address], [place], [address] , [facility] 3 10:09:03 Problem Notes None recorded. 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 [...] Available Not Available No t Available Vitals None Recorded Social History Question Answer Notes LastModified by Organizat ion Details LastModified Time Tobacco Smoking Status Former Smoker Apoorva [place]ade, [place] - [facility] 10/19/2022 10:00:51 Do You [...] When Did You Quit Smoking? 16+yearssince lastcigarette cbvanessaler Information not available 10/19/2022 Do You Have A Medical Power Of Electronic Sales And Service Technician? No Information not available 12/14/2022 What Was [...] Status Question Answer Note LastModified by Organizat [employer] Details LastModified Time Do you use any [...] Status Question Answer Note LastModified by [employer]at [employer] Details LastModified Time Do you feel stressed (tense, restless, nervous, or anxious, or unable to sleep at night)? [id number] Information not available 12/14/2022 Do you have [...] trivalent, PF 4 completed Nicole Stears null, [place] - [facility] 02/10/2024 14:22:13 Pneumococcal conjugate PCV20, polysaccharide [id number] conjugate, adjuvant, PF 4 completed Jessi Reid, QUARTER DOPER [address], [place], [address], [place] [facility] 03/19/2024 13:57:06 Influenza, high-dose, trivalent, PF 5 completed Nicole Stears null, [place] - [facility] 01/04/2025 15:04:15 COVID-19, mRNA, LNP-S, PF, 100 mcg/0.5mL dose or 50 mcg/0.25mL dose 1 completed Apoorva Henson null, [place] - [facility] 02/16/2022 13:33:53 COVID-19, mRNA, LNP-S, [...] dose or 50 mcg/0.25mL dose 1 completed Apoorvavincenzo Henson null, [place] - [facility] 02/16/2022 13:33:53 Past Encounters Encounter ID Performer Location Encounter Start Date Encounter Closed Date Diagnosis/Indication Diagnosis SNOMED-CT Code Diagnosis ICD10 Code Diagnosis IMO Codes Diagnosis Note [id number] Jessi Reid APRN [address] [address] 01/04/2025 14:37:33 01/04/2025 15:10:07 Influenza vaccine needed 1994929284 106 Z23 Health Concerns Section Related Observation LastModified by Organization Detai ls LastModified Time None Recorded Concern Status LastModified by Organization Details LastModified Time None Recorded Payers Encounter Date Sequence Insurance Name Policy Number Policy Parker Covered Member ID Parker Member ID Guarantor Name 01/04/2025 1 [facility] (MEDICARE REPLACEMENT/A DVANTAGE - HMO) [id number] Milind Villalobos [id number] Milind Villalobos Notes Date Note Type Note Provider Name a nd Address Organization Details Recorded Time 01/04/2025 text/html flu shot Nicole Mederos null, [place] - [facility] 01/04/2025 15:07:51
== END 2025-03-23 23:59 | disposition home or self-care (01) ==
LOC: LAB.DROPOF 03-24 18:58
PROVIDERS: PCP Nurse Practitioner Family; Visit Provider Nurse Practitioner Family
DX: E11.9 Type 2 diabetes mellitus without complications (principal)
CPT/HCPCS: 82043; 82570